=== PATIENT | female | born 1985 | race Caucasian/White ===

== ENCOUNTER → 2016-11-13 | Outpatient (CLI) | payer OTHER ==
[2016-11-13 17:23] LABS: BASO % 0.5 %; BASO ABS # 0.04 K/uL (0-0.2); COMPLETE YES; EOS % 0.4 %; HEMATOCRIT 39.1 % (37-47); IG% 0.8 %; LYMPH % 33.7 %; LYMPH ABS # 2.49 K/uL (1.2-3.4); MEAN CELL VOLUME 96.8 fL (80-100); MEAN CORPUSCULAR HEMOGLOBIN 31.7 pg (25-34); MEAN CORPUSCULAR HGB CONC 32.7 g/dl (32-36); MEAN PLATELET VOLUME 10.6 fL (7.4-10.4); MONO % 5.1 %; NEUT % 59.5 %; PLATELET COUNT 288 K/uL (130-400); RED BLOOD COUNT 4.04 M/uL (4.2-5.4); WHITE BLOOD COUNT 7.38 K/uL (4.8-10.8)
[2016-11-13 17:38] LABS: ALT/SGPT 29 U/L (12-78); BLOOD UREA NITROGEN 9 mg/dl (7-18); BUN/CREATININE RATIO 9.3 (10-20); CALCIUM 9.4 mg/dl (8.5-10.1); CARBON DIOXIDE 30 mmol/L (21-32); CHLORIDE 104 mmol/L (98-107); CHOLESTEROL 167 mg/dl (0-200); CREATININE 0.95 mg/dl (0.60-1.20); GLUCOSE 88 mg/dl (70-99); POTASSIUM 3.8 mmol/L (3.5-5.1); SODIUM 139 mmol/L (136-145)
[2016-11-13 17:46] LABS: ALB/GLOB RATIO 0.8 (0.9-2); ALKALINE PHOSPHATASE 71 U/L (45-117); AST/SGOT 20 U/L (15-37); CHOLESTEROL/HDL RATIO 3.7; HDL CHOLESTEROL 45 mg/dl; LDL CHOLESTEROL CALCULATED 89 mg/dl; TRIGLYCERIDES 166 mg/dl (0-150); VERY LOW DENSITY LIPOPROT CALC 33 mg/dl
--- NOTE | 2016-12-06 09:51 | CODING QUERY MEDICAL NECESSITY ---
SUPPORTING DIAGNOSIS NEEDED Suhas LEMONS, A supporting diagnosis is required for the test/procedure performed on this patient in order for us to be reimbursed by the patient's insurance. Please provide a supporting diagnosis for the following test/procedure listed below next to the test name along with your signature. *If there is no additional diagnosis for this patient that would support the following test/procedure please document that below next to the test/procedure. Test(s)/Procedure(s) that require a supporting diagnosis: * ([id number]) VITAMIN D ASSAY DIAGNOSIS: DATE OF SERVICE: 11/13/16 Provider Signature: Date: Thank you Lenny Arizmendi [facility] Information Management Once completed, please kindly fax back to [phone] For questions please call [phone]
== END | disposition home or self-care (01) ==
LOC: C.LABBFT 12:48
PROVIDERS: ATTEND Physician Assistant Medical
DX: R63.5 Abnormal weight gain (principal); E55.9 Vitamin D deficiency, unspecified

== ENCOUNTER 2018-10-15 13:30 | Inpatient (IN) ==
[2018-10-15] MEDS ORDERED: SODIUM CHLORIDE 0.9% 1000ML 1,000 ML IV ONE (13:57)
[2018-10-15] MEDS ORDERED: ALBUT/IPRATROP 3MG/0.5MG NEB 3 ML VIAL NEB STA (13:57)
--- NOTE | 2018-10-15 14:14 | XRay Report ---
SINGLE VIEW CHEST CLINICAL HISTORY: Sepsis. FINDINGS: An AP, portable, upright chest radiograph is obtained. No prior studies are available for c omparison at the time of dictation. The examination is degraded by portable technique and patient rot ation. The cardiomediastinal silhouette is unremarkable. Findings suggest pulmonary vascular congest ion. No airspace consolidation or large pleural effusion is identified. No pneumothorax is seen. The bony thorax is grossly intact. IMPRESSION: 1. Suspect pulmonary vascular congestion. 2. No airspace consolidation or large pleural effusion is identified. Electronically signed by: Caesar Melendez M.D. 10/15/2018 2:12 PM
[2018-10-15 14:36] LABS: Basophils # (auto) 0.06 K/uL (0-0.2); Basophils % (auto) 0.4 %; Eosinophils # (auto) 0.11 K/uL (0-0.5); Eosinophils % (auto) 0.8 %; Hematocrit (blood only) 38.3 % (37-47); Hemoglobin 13.2 g/dL (12.0-16.0); Immature Granulocytes # (auto) 0.04 K/uL (0.00-0.02); Immature Granulocytes % (auto) 0.3 %; Lymphocytes # (auto) 2.66 K/uL (1.2-3.4); Lymphocytes % (auto) 19.1 %; Mean Corpuscular Hgb Conc 34.5 g/dL (32-36); Mean Corpuscular Volume 95.5 fL (80-100); Mean Platelet Volume 9.9 fL (7.4-10.4); Monocytes # (auto) 0.53 K/uL (0.11-0.59); Monocytes % (auto) 3.8 %; Neutrophils # (auto) 10.54 K/uL (1.4-6.5); Neutrophils % (auto) 75.6 %; Platelet Count 281 K/uL (130-400); RDW Coefficient of Variation 14.4 % (11.5-14.5); RDW Standard Deviation 49.9 fL (36.4-46.3); Red Blood Count 4.01 M/uL (4.2-5.4); White Blood Count 13.94 K/uL (4.8-10.8)
--- NOTE | 2018-10-15 14:50 | Emergency Department Note ---
ED Visit Note I assisted in the care of this patient with Dr. Lloyd. Please see his note for further details. . Resident Activity Tracking Resident Involvement: Resident Care Provided Care Provided: Adult ED
[2018-10-15 14:52] LABS: Alanine Aminotransferase 35 U/L (12-78); Albumin Level 3.7 gm/dl (3.4-5.0); Aspartate Aminotransferase 17 U/L (15-37); BUN Creatinine Ratio 7.5 (10-20); Blood Urea Nitrogen 9 mg/dl (7-18); Calcium 9.2 mg/dl (8.5-10.1); Carbon Dioxide 28 mmol/L (21-32); Chloride 104 mmol/L (98-107); Creatinine Clr Calc Pharmacy 84.4 ml/min; Est GFR (African American) 74.2; Glucose 104 mg/dl (70-99); Potassium 3.7 mmol/L (3.5-5.1); Sodium 139 mmol/L (136-145)
--- NOTE | 2018-10-15 14:54 | Emergency Department Note ---
Entered by Sherry Sauceda acting as a scribe for Logan Lloyd MD History of Present Illness General Chief complaint: Illness Time Seen by Provider: 10/15/18 13:36 Source: other (Caregiver ) History of Present Illness Provider complaint: Illness Onset (ago): week(s) 1 Location: chest (cough, chest pain ) Pain Consistency: + other (worsening ) Quality: + constant Associated symptoms: + chest pain, + cough, + shortness of breath and + other (Positive: more sleepy. Negative: pain or swelling in legs, diarrhea ); no nausea/vomiting (vomiting ) The patient is a 33 year old female who presents to the ED with complaints of worsening cough that started a week ago. The caregiver reports she has history of down syndrome and goes to [employer]. The staff at the daycare was concerned since she was becoming worse. She has shortness of breath with her cough. The patient has chest pain and dry heaving. She did not have any recent travel. Per nursing staff, the patients father found an empty bottle of cough medicine. The caregiver states the patient has been acting differently in which she sleeps a lot more. The patient is on 3 liters of oxygen. The patient denies diarrhea, vomiting, pain or swelling in legs. Home Medications Home Medications Medication Instructions Recorded Confirmed Type No Known Home Medications 10/15/18 10/15/18 History Allergies Allergy/AdvReac Type Severity Reaction Status Date / Time No Known Allergies Allergy Unverified 10/15/18 14:02 Past Med/Surg History Medical History Bronchospasm, acute (Acute) Acute respiratory failure with hypoxia (Acute) Bronchopneumonia (Acute) Down syndrome (Chronic) Right elbow pain (Acute) Family History Other No known problems Social History Feels Safe at Home: Yes Smoking Status: Never smoker Review of Systems See HPI for pertinent positives & negatives. and A total of 10 systems reviewed and were otherwise negative Physical Exam Vital Signs Vital Signs - 24 hr 10/15/18 13:40 10/15/18 13:57 10/15/18 14:13 Temperature 37.1 C Temperature Source Oral Sepsis Recent Fever Within 48 Hours No Sepsis Action Taken by Nursing No Action Required Pulse Rate 79 Pulse Rate [Apical] 108 H 75 Pulse Rhythm [Apical] Respiratory Rate 22 23 22 Respiratory Effort / Characteristics Spontaneous Respiratory Depth Normal Blood Pressure 143/92 H Blood Pressure [Right Arm] Blood Pressure Mean 109 Blood Pressure Mean [Right Arm] Pulse Oximetry 88 L 92 94 Oxygen Delivery Method Room Air Nasal Cannula Nasal Cannula Oxygen Flow Rate 4 4 10/15/18 16:05 Temperature Temperature Source Sepsis Recent Fever Within 48 Hours Sepsis Action Taken by Nursing Pulse Rate Pulse Rate [Apical] 93 H Pulse Rhythm [Apical] Regular Respiratory Rate 22 Respiratory Effort / Characteristics Non-Labored Respiratory Depth Normal Blood Pressure Blood Pressure [Right Arm] 156/81 H Blood Pressure Mean Blood Pressure Mean [Right Arm] 106 Pulse Oximetry 95 Oxygen Delivery Method Nasal Cannula Oxygen Flow Rate 4 General: Mildly-ill appearing young female on supplemental oxygen. HEENT: Normal cephalic atraumatic. Pupils are equal round and reactive to light. Extraocular movements are intact. Oropharynx is pink with moist mucous membranes. No swelling of the mouth lips or tongue. Neck: Supple with a midline trachea. No meningeal signs or stiffness, no JVD or bruits. No Stridor. Chest: Somewhat coarsed to auscultation bilaterally. No wheezes or rhonchi. No increased work of breathing. Heart: regular rate and rhythm. Abdomen: Soft nontender, nondistended without rebound guarding or rigidity. Extremities: No cyanosis clubbing or edema. No calf tenderness or asymmetry Spine/Back. Non tender to palpation. No CVA tenderness Skin: Good turgor without rashes. Neurologic exam: Cranial nerves two through 12 are intact. Motor and sensation are intact and symmetrical throughout. Course 1358: The patient was evaluated in room B4B. A complete history and physical exam was performed. 1538: I checked on the patient. The patient looks better and I spoke with the father. 1605: The resident reviewed the sabina's case with Dr. Lester, [facility] Hospitalist. Administered Medications Miscellaneous Information (Consult) 1 ea N/A UD PRN PRN Reason: Consult Stop: 11/14/18 15:50 Last Admin: 10/15/18 16:05 Dose: 1 ea Documented by: [id number] Discontinued Medications Albuterol (Duoneb) 3 ml NEB NOW STA Stop: 10/15/18 13:58 Last Admin: 10/15/18 14:10 Dose: 3 ml Documented by: [id number] Sodium Chloride (Nss 1000ml) 1,000 mls @ 999 mls/hr IV .Q1H1M ONE Stop: 10/15/18 14:57 Last Infusion: 10/15/18 15:34 Dose: 0 mls/hr Documented by: [id number] Admin: 10/15/18 14:33 Dose: 999 mls/hr Documented by: [id number] Piperacillin Sod/Tazobactam Sod (Zosyn) 3.375 gm in 115 mls @ 230 mls/hr IV NOW STA Stop: 10/15/18 16:20 Last Infusion: 10/15/18 16:41 Dose: 0 mls/hr Documented by: [id number] Admin: 10/15/18 16:05 Dose: 230 mls/hr Documented by: [id number] Medical Decision Making Differential Diagnosis Differential Diagnosis: Pneumonia, sepsis, overdose, bronchitis, electrolyte and metabolic abnormalities. Medical Records Attestation: I reviewed the patient's medical records. Home Medications Current Medication List: was personally reviewed by me Laboratory Data Attestation: I reviewed the patient's lab results. Result diagrams: 10/15/18 14:25 10/15/18 14:25 Lab Results 10/15/18 10/15/18 10/15/18 Range/Units 14:25 14:25 14:25 WBC 13.94 H (4.8-10.8) K/uL RBC 4.01 L (4.2-5.4) M/uL Hgb 13.2 (12.0-16.0) g/dL Hct 38.3 (37-47) % MCV 95.5 (80-100) fL MCH 32.9 (25-34) pg MCHC 34.5 (32-36) g/dL RDW Std Deviation 49.9 H (36.4-46.3) fL RDW Coeff of Jane 14.4 (11.5-14.5) % Plt Count 281 (130-400) K/uL MPV 9.9 (7.4-10.4) fL Immature Gran % (Auto) 0.3 % Neut % (Auto) 75.6 % Lymph % (Auto) 19.1 % Baldwin % (Auto) 3.8 % Eos % (Auto) 0.8 % Baso % (Auto) 0.4 % Immature Gran # (Auto) 0.04 H (0.00-0.02) K/uL Neut # (Auto) 10.54 H (1.4-6.5) K/uL Lymph # (Auto) 2.66 (1.2-3.4) K/uL Baldwin # (Auto) 0.53 (0.11-0.59) K/uL Eos # (Auto) 0.11 (0-0.5) K/uL Baso # (Auto) 0.06 (0-0.2) K/uL PT (9.0-12.0) Seconds INR (0.9-1.1) APTT (21.0-31.0) Seconds PTT Ratio Sodium Cancelled Potassium Cancelled Chloride Cancelled Carbon Dioxide Cancelled Anion Gap Cancelled BUN Cancelled Creatinine Cancelled Est Cr Clr Drug Dosing Cancelled Est GFR ( Amer) Cancelled Est GFR (Non-Af Amer) Cancelled BUN/Creatinine Ratio Cancelled Glucose Cancelled Lactate 1.7 (0.4-2.0) mmol/L Calcium Cancelled Total Bilirubin Cancelled AST Cancelled ALT Cancelled Alkaline Phosphatase Cancelled Troponin I (0-0.045) ng/ml NT-Pro-B Natriuret Pep (0-450) pg/ml Total Protein Cancelled Albumin Cancelled Globulin Cancelled Albumin/Globulin Ratio Cancelled Procalcitonin (0-0.5) ng/ml Urine Color Urine Appearance (Clear) Urine pH (4.5-7.5) Ur Specific [place] (1.000-1.030) Urine Protein (Negative) Urine Glucose (UA) (Negative) Urine Ketones (Negative) Urine Blood (Negative) Urine Nitrite (Negative) Urine Bilirubin (Negative) Urine Urobilinogen (Negative) Ur Leukocyte Esterase (Negative) Urine WBC (Auto) (0-5) /hpf Urine RBC (Auto) (0-4) /hpf U Hyaline Cast (Auto) (0-5) /lpf U Epithel Cells (Auto) (0-5) /lpf Urine Bacteria (Auto) (Negative) Salicylates (2.8-20) mg/dl Acetaminophen (10-30) ug/ml 10/15/18 10/15/18 10/15/18 Range/Units 14:25 14:25 14:25 WBC (4.8-10.8) K/uL RBC (4.2-5.4) M/uL Hgb (12.0-16.0) g/dL Hct (37-47) % MCV (80-100) fL MCH (25-34) pg MCHC (32-36) g/dL RDW Std Deviation (36.4-46.3) fL RDW Coeff of Jane (11.5-14.5) % Plt Count (130-400) K/uL MPV (7.4-10.4) fL Immature Gran % (Auto) % Neut % (Auto) % Lymph % (Auto) % Baldwin % (Auto) % Eos % (Auto) % Baso % (Auto) % Immature Gran # (Auto) (0.00-0.02) K/uL Neut # (Auto) (1.4-6.5) K/uL Lymph # (Auto) (1.2-3.4) K/uL Baldwin # (Auto) (0.11-0.59) K/uL Eos # (Auto) (0-0.5) K/uL Baso # (Auto) (0-0.2) K/uL PT (9.0-12.0) Seconds INR (0.9-1.1) APTT (21.0-31.0) Seconds PTT Ratio Sodium 139 Potassium 3.7 Chloride 104 Carbon Dioxide 28 Anion Gap 7.0 BUN 9 Creatinine 1.14 Est Cr Clr Drug Dosing 84.4 Est GFR ( Amer) 74.2 Est GFR (Non-Af Amer) 64.0 BUN/Creatinine Ratio 7.5 L Glucose 104 H Lactate (0.4-2.0) mmol/L Calcium 9.2 Total Bilirubin 0.3 AST 17 ALT 35 Alkaline Phosphatase 87 Troponin I < 0.015 (0-0.045) ng/ml NT-Pro-B Natriuret Pep (0-450) pg/ml Total Protein 8.6 H Albumin 3.7 Globulin 4.9 H Albumin/Globulin Ratio 0.8 L Procalcitonin 0.05 (0-0.5) ng/ml Urine Color Urine Appearance (Clear) Urine pH (4.5-7.5) Ur Specific [place] (1.000-1.030) Urine Protein (Negative) Urine Glucose (UA) (Negative) Urine Ketones (Negative) Urine Blood (Negative) Urine Nitrite (Negative) Urine Bilirubin (Negative) Urine Urobilinogen (Negative) Ur Leukocyte Esterase (Negative) Urine WBC (Auto) (0-5) /hpf Urine RBC (Auto) (0-4) /hpf U Hyaline Cast (Auto) (0-5) /lpf U Epithel Cells (Auto) (0-5) /lpf Urine Bacteria (Auto) (Negative) Salicylates < 1.7 L (2.8-20) mg/dl Acetaminophen < 2 L (10-30) ug/ml 10/15/18 10/15/18 10/15/18 Range/Units 14:25 15:02 15:02 WBC (4.8-10.8) K/uL RBC (4.2-5.4) M/uL Hgb (12.0-16.0) g/dL Hct (37-47) % MCV (80-100) fL MCH (25-34) pg MCHC (32-36) g/dL RDW Std Deviation (36.4-46.3) fL RDW Coeff of Jane (11.5-14.5) % Plt Count (130-400) K/uL MPV (7.4-10.4) fL Immature Gran % (Auto) % Neut % (Auto) % Lymph % (Auto) % Baldwin % (Auto) % Eos % (Auto) % Baso % (Auto) % Immature Gran # (Auto) (0.00-0.02) K/uL Neut # (Auto) (1.4-6.5) K/uL Lymph # (Auto) (1.2-3.4) K/uL Baldwin # (Auto) (0.11-0.59) K/uL Eos # (Auto) (0-0.5) K/uL Baso # (Auto) (0-0.2) K/uL PT 10.1 (9.0-12.0) Seconds INR 1.0 (0.9-1.1) APTT 27.8 (21.0-31.0) Seconds PTT Ratio 1.0 Sodium Potassium Chloride Carbon Dioxide Anion Gap BUN Creatinine Est Cr Clr Drug Dosing Est GFR ( Amer) Est GFR (Non-Af Amer) BUN/Creatinine Ratio Glucose Lactate (0.4-2.0) mmol/L Calcium Total Bilirubin AST ALT Alkaline Phosphatase Troponin I (0-0.045) ng/ml NT-Pro-B Natriuret Pep 14 (0-450) pg/ml Total Protein Albumin Globulin Albumin/Globulin Ratio Procalcitonin (0-0.5) ng/ml Urine Color Yellow Urine Appearance Cloudy A (Clear) Urine pH 5.5 (4.5-7.5) Ur Specific [place] 1.011 (1.000-1.030) Urine Protein Negative (Negative) Urine Glucose (UA) Negative (Negative) Urine Ketones Negative (Negative) Urine Blood Negative (Negative) Urine Nitrite Negative (Negative) Urine Bilirubin Negative (Negative) Urine Urobilinogen Negative (Negative) Ur Leukocyte Esterase Negative (Negative) Urine WBC (Auto) 0 (0-5) /hpf Urine RBC (Auto) 0-4 (0-4) /hpf U Hyaline Cast (Auto) 0 (0-5) /lpf U Epithel Cells (Auto) 5-10 H (0-5) /lpf Urine Bacteria (Auto) Negative (Negative) Salicylates (2.8-20) mg/dl Acetaminophen (10-30) ug/ml Imaging Data Radiologist's Impression: Radiology results as stated below per my review and the radiologist's interpretation: SINGLE VIEW CHEST CLINICAL HISTORY: Sepsis. FINDINGS: An AP, portable, upright chest radiograph is obtained. No prior studies are available for comparison at the time of dictation. The examination is degraded by portable technique and patient rotation. The cardiomediastinal silhouette is unremarkable. Findings suggest pulmonary vascular congestion. No airspace consolidation or large pleural effusion is identified. No pneumothorax is seen. The bony thorax is grossly intact. IMPRESSION: 1. Suspect pulmonary vascular congestion. 2. No airspace consolidation or large pleural effusion is identified. Electronically signed by: Caesar Melendez M.D. 10/15/2018 2:12 PM ECG Data Attestation: I personally reviewed and interpreted this ECG as follows: Indication: chest pain and SOB/dyspnea Rate (beats per minute): 85 Rhythm: normal sinus Findings: no acute ischemic change and no ectopy Comparison ECG Date: no prior available Blood Pressure Blood Pressure Disposition: further management by hospitalist LILIAM Narrative This patient comes in as described above. She was placed in room before she had a cough for several days. She was found to be hypoxemic. She has been more lethargic than normal not drinking as much. She may have taken an extra dose of cough medicine last night. IV access established she was hydrated with normal saline and multiple blood testing was obtained including blood cultures. her white count is elevated. Chest x-ray shows some possible increased interstitial markings no focal infiltrate is seen. Clinically, I think she probably does have pneumonia or may be a more severe bronchitis. Given her hypoxemia, I do think she needs to be admitted. She was given IV antibiotics. She seems to doing much better with the fluids antibiotics and breathing treatments. Her toxicologic work-up is unremarkable thus far as well. I did talk to her father. We are going to admit her for further treatment and evaluation. Impression & Plan Pneumonia, Hypoxemia, Bronchitis, Shortness of breath, Down syndrome Discharge Plan Visit Data Chief Complaint: Illness ED Provider: Logan Lloyd ED Midlevel Provider: Lex Mcneil Discharge Problem: Pneumonia, Hypoxemia, Bronchitis, Shortness of breath, Down syndrome Patient Disposition: Being Evaluated by Hospitalist Discharge Instructions Interventions: ED Discharge Assessment Last Done: 10/15/18 18:48 The scribe's documentation has been prepared under my direction and personally reviewed by me in its entirety. I confirm that the note above accurately reflects all work, treatment, procedures, and medical decision making performed by me.
[2018-10-15 14:57] LABS: Albumin Globulin Ratio 0.8 (0.9-2); Alkaline Phosphatase 87 U/L (45-117); Bilirubin,Total 0.3 mg/dl (0.2-1); Globulin 4.9 gm/dl (2.5-4.0); Total Protein 8.6 gm/dl (6.4-8.2); Troponin I < 0.015 ng/ml (0-0.045)
[2018-10-15 15:06] LABS: Acetaminophen < 2 ug/ml (10-30); Salicylate < 1.7 mg/dl (2.8-20)
[2018-10-15 15:14] LABS: Appearance Urine Cloudy (Clear); Bacteria Urine Automated Negative (Negative); Bilirubin Urine Negative (Negative); Blood Urine Negative (Negative); Cast Urine Automated 0 /lpf (0-5); Color Urine Yellow; Glucose Urine UA Negative (Negative); Ketones Urine Negative (Negative); Leukocyte Esterase Urine Negative (Negative); Nitrite Urine Negative (Negative); Protein Urine Negative (Negative); RBC Urine Automated 0-4 /hpf (0-4); Specific Gravity Urine 1.011 (1.000-1.030); Urobilinogen Urine Negative (Negative); WBC Urine Automated 0 /hpf (0-5); pH Urine 5.5 (4.5-7.5)
[2018-10-15 15:22] LABS: Partial Thromboplastin Time 27.8 Seconds (21.0-31.0); Prothrombin Time 10.1 Seconds (9.0-12.0)
[2018-10-15] MEDS ORDERED: PIPERACILL/TAZOBAC CONSULT ACTIVE PRN (15:51)
[2018-10-15] MEDS ORDERED: PIPERACILLIN/TAZOBACTAM 3.375 GM/115 ML BAG IV STA (15:51)
--- NOTE | 2018-10-15 16:18 | History & Physical Report ---
Date of Service October 15, 2018 Assessment & Plan (1) Bronchopneumonia: The patient is unable to produce any sputum for culture. Treat with intravenous Rocephin and azithromycin. Chest CT scan to evaluate for infiltrates Present on Admission?: Yes (2) Acute respiratory failure with hypoxia: Supplemental oxygen to maintain saturation greater than 90%. Wean off as tolerated Present on Admission?: Yes (3) Bronchospasm, acute: Intravenous steroids. Scheduled nebulizer treatments. Treat bronchopneumonia Present on Admission?: Yes (4) Down syndrome: Provide supportive care Present on Admission?: Yes (5) DVT prophylaxis: Lovenox subcu History of Present Illness Chief Complaint: Nonproductive cough, shortness of breath Primary Care Provider: Steve Nicholson MD 33-year-old female with Down syndrome with a one-week history of nonproductive cough, shortness of breath, wheezing. Her symptoms progressed and she was brought to the ED today by EMS. Oxygen saturation 84% on room air. Chest x-ray is negative but clinically she has bronchopneumonia. Chest CT scan pending to document presence or absence of pneumonia. She is now on 4 L of oxygen and appears to be resting comfortably. Her box order person denies any problems with dysphagia or aspiration episodes. BNP is normal. Lactic acid normal. Creatinine normal. White count 13,900. She is unable to produce any sputum for culture. She will be treated with intravenous Rocephin and a azithromycin along with Solu-Medrol and nebulizers. Allergies Allergy/AdvReac Type Severity Reaction Status Date / Time No Known Allergies Allergy Unverified 10/15/18 14:02 Home Medications Home Medications Medication Instructions Recorded Confirmed Type No Known Home Medications 10/15/18 10/15/18 History Past Med/Surg History Medical History Bronchospasm, acute (Acute) Acute respiratory failure with hypoxia (Acute) Bronchopneumonia (Acute) Down syndrome (Chronic) Right elbow pain (Acute) Family History Other No known problems Social History Feels Safe at Home: Yes Smoking Status: Never smoker Review of Systems Review of Systems: Constitutional-no fever or chills ENT-no blurred vision, no double vision, no epistaxis, no sore throat Respiratory-nonproductive cough, shortness of breath, wheezing Cardiac-no palpitations, no chest pain, no syncope GI-no nausea, vomiting, diarrhea, melena, hematochezia -no urinary retention, no urinary incontinence, no dysuria, no hematuria Musculoskeletal-no joint pain, no muscle tenderness Skin-no bruising, no rashes, no pruritus Neuro-no isolated weakness, no paresthesia, no weakness Psych-no depression, no anxiety Physical Exam Physical Exam: General-alert and oriented x3, no fevers, no chills HEENT-head atraumatic and normocephalic, TMs intact bilaterally, pupils equal and reactive to light, extraocular muscles intact Neck-no lymphadenopathy or thyromegaly, trachea midline Chest-midline rhonchi. Bilateral expiratory wheezes. No inspiratory rales. No dullness to percussion Cardiac-regular rate and rhythm, normal S1 and S2, no murmurs Abdomen-normal bowel sounds, nontender, no hepatosplenomegaly Extremities-no cyanosis, clubbing, or edema Neuro-cranial nerves II through XII intact, strength symmetrical , no focal deficits. Down syndrome Psych-normal affect, normal mood Results & Data Vital Signs (Past 12 Hours) Vital Signs Temp Pulse Pulse Resp BP BP Pulse Ox 10/15/18 16:05 93 H 22 156/81 H 95 10/15/18 14:13 75 22 94 10/15/18 13:57 108 H 23 92 10/15/18 13:40 37.1 C 79 22 143/92 H 88 L Laboratory Results 10/15/18 14:25 10/15/18 14:25 PG Care Time/CCT Total # of Minutes Spent Total Time Spent with Patient: Total time spent is greater than 50% in coordination of care (as documented) at patient's floor/unit and/or counseling patient:
--- NOTE | 2018-10-15 17:23 | CT Scan Report ---
CT chest wo con CLINICAL HISTORY: Hypoxia, suspected pneumonia, negative chest x-ray COMPARISON STUDY: Chest x-ray dated 10/15/2018 CT DOSE: 667.29 mGy.cm TECHNIQUE: CT of the thorax was performed from the thoracic inlet to the lung bases. Images are revi ewed in the axial, sagittal, and coronal planes. IV contrast was not administered for this examinatio n. A dose lowering technique was utilized adhering to the principles of ALARA. FINDINGS: Thyroid: There is mild enlargement of the left lobe of the thyroid. Underlying nodularity cannot be e xcluded Thoracic aorta: The thoracic aorta is normal in course and caliber, noting standard 3 vessel arch elizabet cassius. Heart: The heart is normal in size and configuration, without pericardial effusion. Lungs and pleural spaces: The study is severely compromised due to respiratory motion artifact. There are left lower lobe airspace opacity suspicious for pneumonia. Imaging subsequent to treatment is re commended in follow-up. There is equivocal trace left pleural fluid Mediastinum: There is no mediastinal lymphadenopathy. Karen: There is no evidence of hilar adenopathy given the limitations of a noncontrast study Axilla: There is no evidence of pathologic axillary lymphadenopathy Upper abdomen: There is hepatic steatosis. Skeletal structures: There are no lytic or blastic osseous lesions. IMPRESSION: 1. Examination compromised secondary to respiratory motion artifact 2. Left lower lobe airspace opacities consistent with pneumonia. Imaging subsequent to treatment is r ecommended in follow-up Electronically signed by: Brent Bianchi M.D. 10/15/2018 5:22 PM
[2018-10-15] MEDS ORDERED: cefTRIAXone SODIUM 1,000 MG in DEXTROSE 5% 50 ML IV SCH (19:52)
[2018-10-15] MEDS ORDERED: ALUMINUM/MAGNESIUM SUSP 30 ML UDC PO PRN (19:52)
[2018-10-15] MEDS: ALBUT/IPRATROP 3MG/0.5MG NEB 3 ML VIAL NEB SCH (21:08)
[2018-10-15] MEDS: methylPREDNISolone 40 MG in SYRINGE 0 ML IV SCH (21:37)
[2018-10-15] MEDS: ENOXAPARIN INJ 40 MG/0.4 ML SYR SQ SCH (21:39)
[2018-10-15] MEDS: cefTRIAXone SODIUM 2,000 MG in DEXTROSE 5% 50 ML IV SCH (21:39)
[2018-10-15] MEDS: AZITHROMYCIN 500 MG in DEXTROSE 5% 250 ML IV SCH (22:47)
[2018-10-16] MEDS: methylPREDNISolone 40 MG in SYRINGE 0 ML IV SCH ×3 (04:59→21:01)
[2018-10-16] MEDS: ALBUT/IPRATROP 3MG/0.5MG NEB 3 ML VIAL NEB SCH ×4 (07:11→19:49)
--- NOTE | 2018-10-16 07:31 | Hospitalist Progress Note ---
Date of Service October 16, 2018 Assessment & Plan (1) Bronchopneumonia: The patient is unable to produce any sputum for culture. Treat with intravenous Rocephin and azithromycin. Chest CT scan to evaluate for infiltrates (2) Acute respiratory failure with hypoxia: Supplemental oxygen to maintain saturation greater than 90%. Wean off as tolerated degree of hypoxia seems to be more significant than infiltrates seen on CT scan likewise her asthma exacerbation is not such that she seems a significant air trapping. We will perform an echocardiogram to look for atrial ventricular septal defects for mixing to explain her hypoxia (3) Bronchospasm, acute: Intravenous steroids. Scheduled nebulizer treatments. Treat bronchopneumonia (4) Down syndrome: Provide supportive care (5) DVT prophylaxis: Lovenox subcu Subjective Patient has very little interaction with me she appears to be in only mild distress she is wearing an oxygen mask family is present at the bedside. She has some rhonchi in bilateral lungs and she appears to be in mild to moderate distress Review of Systems Review of Systems: Unobtainable due to cognitive status Physical Exam Physical Exam: The patient appeared well nourished and has typical developmental features of Down syndrome Vital signs as documented. Head exam is unremarkable. normocephalic, atraumatic Neck is without jugular venous distension but difficult to evaluate Lungs are clear with rhonchi bibasilarly equal bilaterally Cardiac exam reveals Rhythm is regular lab murmurs are not heard Abdominal exam reveals normal bowel sounds, no masses, no organomegaly Extremities are nonedematous and both pedal pulses are present Neurologic exam is Alert and follows commands Psychologically seems anxious Skin is warm Dry Results & Data Vital Signs (Past 12 Hours) Vital Signs Temp Pulse Resp BP Pulse Ox 10/16/18 07:11 82 20 88 L 10/16/18 04:33 37 C 71 16 148/88 H 97 10/16/18 00:00 37.1 C 92 H 20 155/91 H 92 10/15/18 21:00 37.1 C 98 H 22 152/89 H 90 10/15/18 20:19 37.1 C 98 H 22 152/89 H 90 PG Care Time/CCT Total # of Minutes Spent Total Time Spent with Patient: Total time spent is greater than 50% in coordination of care (as documented) at patient's floor/unit and/or counseling patient:
[2018-10-16] MEDS ORDERED: PERFLUTREN LIPID MICROSPHERE (DEFINITY) IV ONE (15:17)
[2018-10-16] MEDS: cefTRIAXone SODIUM 2,000 MG in DEXTROSE 5% 50 ML IV SCH (20:58)
[2018-10-16] MEDS: ENOXAPARIN INJ 40 MG/0.4 ML SYR SQ SCH (20:59)
[2018-10-16] MEDS: AZITHROMYCIN 500 MG in DEXTROSE 5% 250 ML IV SCH (21:48)
[2018-10-17] MEDS: methylPREDNISolone 40 MG in SYRINGE 0 ML IV SCH ×3 (05:12→22:38)
[2018-10-17] MEDS: ALBUT/IPRATROP 3MG/0.5MG NEB 3 ML VIAL NEB SCH ×4 (07:18→19:11)
--- NOTE | 2018-10-17 09:44 | XRay Report ---
XR chest 2V routine CLINICAL HISTORY: eval pneumonia dyspnea COMPARISON STUDY: 10/15/2018 FINDINGS: Mild cardiomegaly. Mild increased prominence of pulmonary vasculature. Possible early paren chymal infiltrate medial right base. IMPRESSION: 1. Mildly progressive component of congestive heart failure. 2. Potential developing small superimposed parenchymal infiltrate medial right base. The above report was generated using voice recognition software. It may contain grammatical, syntax or spelling errors. Electronically signed by: Rio Sotelo M.D. 10/17/2018 9:43 AM
--- NOTE | 2018-10-17 13:39 | Hospitalist Progress Note ---
Date of Service October 17, 2018 Assessment & Plan (1) Bronchopneumonia: The patient is unable to produce any sputum for culture. Continue intravenous Rocephin and azithromycin. Chest CT shows infiltrates present but not significantly large to explain hypoxia (2) Acute respiratory failure with hypoxia: Supplemental oxygen to maintain saturation greater than 90%. Wean off as tolerated degree of hypoxia seems to be more significant than infiltrates seen on CT scan likewise her asthma exacerbation is not such that she seems a significant air trapping. echocardiogram was relatively normal once again not explaining her significant hypoxemia (3) Bronchospasm, acute: Intravenous steroids. Scheduled nebulizer treatments. Treat bronchopneumonia and recheck for chest physiotherapy (4) Down syndrome: Provide supportive care feels better when her father is around (5) DVT prophylaxis: Lovenox subcu Subjective pt is still looking subjectively improved, she still is with high oxygen requirements, remains on steroids. Review of Systems Review of Systems: Patient has Down syndrome and is answers very few questions says she feels okay breathing is a little better but otherwise would not answer any additional questions she does not look to be in respiratory distress and her hypoxemia seems out of proportion to her physical subjective evaluation Physical Exam Physical Exam: The patient appeared well nourished and is exhibits appearance of Down syndrome patient. She is in mild to moderate distress Vital signs as documented. Head exam is unremarkable. normocephalic, atraumatic Neck is without jugular venous distension, thyromegaly, or lymphademopathy Lungs are coarse bilaterally without wheezes or prolonged expiratory phase Cardiac exam reveals Rhythm is regular. No murmurs are heard Abdominal exam reveals normal bowel sounds, no masses, no organomegaly Extremities are nonedematous and both pedal pulses are present Neurologic exam is A&Ox3, no focal deficits, strength is equal bilateral Psychologically seems anxious Skin is warm Dry Results & Data Vital Signs (Past 12 Hours) Vital Signs Temp Pulse Resp BP BP Pulse Ox 10/17/18 12:05 36.4 C L 88 16 125/76 92 10/17/18 11:14 77 18 93 10/17/18 07:41 36.9 C 74 18 145/79 H 91 10/17/18 07:19 68 18 94 10/17/18 04:00 36.6 C 82 20 127/64 95 PG Care Time/CCT Total # of Minutes Spent Total Time Spent with Patient: Total time spent is greater than 50% in coordination of care (as documented) at patient's floor/unit and/or counseling patient:
[2018-10-17] MEDS ORDERED: FUROSEMIDE 20 MG in SYRINGE 0 ML IV ONE (14:15)
[2018-10-17 14:51] LABS: Base Excess ABG 2.3 mEq/L (-9-1.8); HCO3 ABG 26 mmol/L (19-24); Oxygen Saturation ABG 94.6 % (90-95); PCO2 ABG 39 mmHg (35-46); PO2 ABG 70 mm/Hg (80-95); pH ABG 7.45 (7.35-7.45)
[2018-10-17 14:54] LABS: Allen Test Pos (Pos)
[2018-10-17] MEDS: cefTRIAXone SODIUM 2,000 MG in DEXTROSE 5% 50 ML IV SCH (20:22)
[2018-10-17] MEDS: AZITHROMYCIN 500 MG in DEXTROSE 5% 250 ML IV SCH (21:13)
[2018-10-17] MEDS: ENOXAPARIN INJ 40 MG/0.4 ML SYR SQ SCH (21:16)
[2018-10-18] MEDS: ALBUT/IPRATROP 3MG/0.5MG NEB 3 ML VIAL NEB SCH ×4 (07:33→19:48)
[2018-10-18 08:07] LABS: Basophils # (auto) 0.01 K/uL (0-0.2); Hematocrit (blood only) 38.1 % (37-47); Hemoglobin 12.7 g/dL (12.0-16.0); Immature Granulocytes # (auto) 0.26 K/uL (0.00-0.02); Immature Granulocytes % (auto) 1.2 %; Lymphocytes # (auto) 1.36 K/uL (1.2-3.4); Lymphocytes % (auto) 6.4 %; Mean Corpuscular Hgb Conc 33.3 g/dL (32-36); Mean Platelet Volume 10.2 fL (7.4-10.4); Monocytes % (auto) 1.9 %; Neutrophils % (auto) 90.5 %; Nucleated RBC # (auto) 0.02 K/uL (0-0); Nucleated RBC % (auto) 0.1 %; Platelet Count 317 K/uL (130-400); RDW Coefficient of Variation 15.1 % (11.5-14.5); Red Blood Count 3.85 M/uL (4.2-5.4); White Blood Count 21.33 K/uL (4.8-10.8)
[2018-10-18 08:36] LABS: BUN Creatinine Ratio 20.4 (10-20); Calcium 8.7 mg/dl (8.5-10.1); Est GFR (African American) 86.9; Potassium 4.1 mmol/L (3.5-5.1)
[2018-10-18] MEDS: methylPREDNISolone 40 MG in SYRINGE 0 ML IV SCH ×2 (10:14→21:49)
--- NOTE | 2018-10-18 12:49 | Hospitalist Progress Note ---
Date of Service October 18, 2018 Assessment & Plan (1) Bronchopneumonia: The patient is unable to produce any sputum for culture. Continue intravenous Rocephin and azithromycin. Chest CT shows infiltrates present but not significantly large to explain hypoxia White blood cell count was 21,000 certainly could be leftward shift from steroids. She is had no diarrhea to suspect C. difficile. We will add Stephany nasal lid to cover MRSA will reduce her steroids although we have not had any great improvement in her hypoxemia (2) Acute respiratory failure with hypoxia: Supplemental oxygen to maintain saturation greater than 90%. Wean off as tolerated degree of hypoxia seems to be more significant than infiltrates seen on CT scan Echocardiogram was relatively normal once again not explaining her significant hypoxemia \Hypoxia is present and significant seemingly out of proportion to her subjective presentation (3) Bronchospasm, acute: Intravenous steroids reduced dose on 10/18. continues with Scheduled nebulizer treatments. Treat bronchopneumonia and recheck for chest physiotherapy (4) Down syndrome: Provide supportive care feels better when her father is around (5) DVT prophylaxis: Lovenox subcu Subjective Patient is has very little interaction although she claims to have no distress even when I took the oxygen off and her sats went to the mid 80s she seemed to have no labored breathing or have any untoward side effects. Her white count did jump up quite a bit today which makes me concerned that the antibiotics are not helping, she was diuresed yesterday try to help her hypoxia which showed no improvement Review of Systems Review of Systems: Unobtainable due to cognitive status ROS: Patient is with little verbal interaction to have a reliable review of systems Physical Exam Physical Exam: The patient appeared well nourished and in a typical experience of Down syndrome Vital signs as documented. Head exam is unremarkable. normocephalic, atraumatic Neck is without jugular venous distension, thyromegaly, or lymphademopathy Lungs are coarse bilaterally with more coarse breath sounds at the left base and midway up in the right Cardiac exam reveals Rhythm is regular. No murmurs are heard Abdominal exam reveals normal bowel sounds, no masses, no organomegaly Extremities are nonedematous and both pedal pulses are present Neurologic exam is alert follows directions and with light conversation can interact however does not provide any depth or insight into her illness, no focal deficits, strength is equal bilateral Skin is warm Dry without bruises or lesions Results & Data Vital Signs (Past 12 Hours) Vital Signs Temp Pulse Pulse Pulse Resp BP BP 10/18/18 11:43 36.4 C L 78 18 139/85 10/18/18 11:26 88 16 10/18/18 07:46 36.7 C 71 18 111/58 L 10/18/18 07:33 87 18 10/18/18 04:00 36.8 C 69 20 108/74 10/18/18 01:03 93 H Pulse Ox 10/18/18 11:43 94 10/18/18 11:26 96 10/18/18 07:46 95 10/18/18 07:33 97 10/18/18 04:00 95 10/18/18 01:03 PG Care Time/CCT Total # of Minutes Spent Total Time Spent with Patient: Total time spent is greater than 50% in coordination of care (as documented) at patient's floor/unit and/or counseling patient:
[2018-10-18] MEDS ORDERED: LINEZOLID 600 MG/300 ML BAG IV SCH (13:00)
[2018-10-18] MEDS ORDERED: LINEZOLID 600 MG/300 ML D5W IV SCH (13:00)
--- NOTE | 2018-10-18 15:07 | Infectious Disease Consult ---
Date of Consultation October 18, 2018 Assessment & Plan (1) Pneumonia: 33-year-old female with Down syndrome with pneumonia with significant hypoxia, with subjective improvement but with persistent hypoxia and elevated white blood cell count. For now, would continue patient on current IV antib iotics. Repeat procalcitonin ordered. Will follow. History of Present Illness Reason for Consultation: Initiation of linezolid Attending Physician: Jonathan Henson MD History of Present Illness 33-year-old female with history of Down syndrome who was admitted with 1 week history of progressively worsening cough, shortness of breath, fever, chills, and weakness. Was brought to the hospital where CT scan of the chest revealed evidence of pneumonia, and patient has been treated with IV ceftriaxone and azithromycin, and has been afebrile and comfortable, but still with significant hypoxia. Blood cultures have been negative. Unable to produce sputum. Procalcitonin low. Echocardiogram unremarkable. White count has been elevated but patient has been receiving steroids. Allergies Allergy/AdvReac Type Severity Reaction Status Date / Time No Known Allergies Allergy Unverified 10/15/18 14:02 Home Medications Home Medications Medication Instructions Recorded Confirmed Type No Known Home Medications 10/15/18 10/15/18 History Patient History Medical History Bronchospasm, acute (Acute) Acute respiratory failure with hypoxia (Acute) Bronchopneumonia (Acute) Down syndrome (Chronic) Right elbow pain (Acute) Family History Other No known problems Social History Communication Ability: Impaired Beliefs That Will Affect Care: None Current Living Situation: Family Feels Safe at Home: Yes Safety Concerns: Feels Safe At This Time Smoking Status: Never smoker Hx Alcohol Use: No Hx Substance Use: No Review of Systems Review of Systems: Unobtainable due to cognitive status Physical Exam Constitutional: WD/WN, vitals as above comfortable; no acute distress Eyes: PERRL, conjunctivae normal, anicteric sclerae ENMT: external ear and nose normal, oropharynx normal Neck: trachea midline, no thyromegaly neck nontender Respiratory: normal percussion; no respiratory distress and does not use accessory muscles Auscultation: + rhonchi (Few left-sided) Cardiovascular: Rate/Rhythm: regular rate and regular rhythm Heart Sounds: normal S1 and normal S2; no gallop, no murmur and no cardiac rub Vessels: normal peripheral pulses; no JVD Gastrointestinal (Abdomen): normal bowel sounds, soft, nontender, no he patosplenomegaly Musculoskeletal: no cyanosis or clubbing, extremities motor strength 5/5 Spine: thoracic spine normal to inspection and lumbar spine normal to inspection; no cervical spinal tenderness Skin: no rashes, warm and dry normal turgor; no lesions Neurologic: moves all extremities; no focal motor deficits Psychiatric: Orientation: alert and cooperative Lymphatic: no cervical or axillary lymphadenopathy no inguinal lymphadenopathy Results & Data Vital Signs (Past 12 Hours) Vital Signs Temp Pulse Pulse Resp BP BP Pulse Ox 10/18/18 11:43 36.4 C L 78 18 139/85 94 10/18/18 11:26 88 16 96 10/18/18 07:46 36.7 C 71 18 111/58 L 95 10/18/18 07:33 87 18 97 10/18/18 04:00 36.8 C 69 20 108/74 95 Laboratory Results Short CBC 10/18/18 Range/Units 07:33 WBC 21.33 H (4.8-10.8) K/uL Hgb 12.7 (12.0-16.0) g/dL Hct 38.1 (37-47) % Plt Count 317 (130-400) K/uL BMP 10/18/18 07:33 Sodium 140 Potassium 4.1 Chloride 105 Carbon Dioxide 28 BUN 20 H Creatinine 1.00 Glucose 121 H Calcium 8.7 Diagnostic Findings Microbiology 10/15/18 14:25 Blood Aerobic Blood Culture - Preliminary No growth in Aerobic bottle after 48 hours. 10/15/18 14:25 Blood Anaerobic Blood Culture - Preliminary No growth in Anaerobic bottle after 48 hours. 10/15/18 14:34 Blood Aerobic Blood Culture - Preliminary No growth in Aerobic bottle after 48 hours. 10/15/18 14:34 Blood Anaerobic Blood Culture - Preliminary No growth in Anaerobic bottle after 48 hours. Ordering Phy: Jonathan Henson MD cc: ~ XR chest 2V routine CLINICAL HISTORY: eval pneumonia dyspnea COMPARISON STUDY: 10/15/2018 FINDINGS: Mild cardiomegaly. Mild increased prominence of pulmonary vasculature. Possible early parenchymal infiltrate medial right base. IMPRESSION: 1. Mildly progressive component of congestive heart failure. 2. Potential developing small superimposed parenchymal infiltrate medial right base. The above report was generated using voice recognition software. It may contain grammatical, syntax or spelling errors. (1) Pneumonia Laterality: unspecified laterality Lung location: unspecified part of lung Pneumonia type: due to unspecified organism Qualified Code(s): J18.9 - Pneumonia, unspecified organism
[2018-10-18] MEDS: ACETAMINOPHEN 325 MG TAB PO PRN (16:42)
[2018-10-18] MEDS: cefTRIAXone SODIUM 2,000 MG in DEXTROSE 5% 50 ML IV SCH (20:58)
[2018-10-18] MEDS: AZITHROMYCIN 500 MG in DEXTROSE 5% 250 ML IV SCH (21:51)
[2018-10-18] MEDS: ENOXAPARIN INJ 40 MG/0.4 ML SYR SQ SCH (21:54)
[2018-10-19] MEDS: LINEZOLID 600 MG/300 ML BAG IV SCH ×2 (02:06→13:53)
[2018-10-19] MEDS: ALBUT/IPRATROP 3MG/0.5MG NEB 3 ML VIAL NEB SCH ×4 (07:22→20:01)
[2018-10-19 07:53] LABS: Hematocrit (blood only) 38.3 % (37-47); Hemoglobin 12.6 g/dL (12.0-16.0); Mean Corpuscular Hgb Conc 32.9 g/dL (32-36); Mean Corpuscular Volume 97.5 fL (80-100); Mean Platelet Volume 10.3 fL (7.4-10.4); Platelet Count 334 K/uL (130-400); RDW Coefficient of Variation 14.7 % (11.5-14.5); Red Blood Count 3.93 M/uL (4.2-5.4); White Blood Count 16.81 K/uL (4.8-10.8)
[2018-10-19 08:30] LABS: BUN Creatinine Ratio 17.3 (10-20); Calcium 8.5 mg/dl (8.5-10.1); Creatinine Clr Calc Pharmacy 104.8 ml/min; Est GFR (African American) 100.1; Est GFR (Non-African American) 86.4; Potassium 4.2 mmol/L (3.5-5.1)
[2018-10-19] MEDS: methylPREDNISolone 40 MG in SYRINGE 0 ML IV SCH ×2 (10:37→21:54)
--- NOTE | 2018-10-19 16:42 | Hospitalist Progress Note ---
Date of Service October 19, 2018 Assessment & Plan (1) Bronchopneumonia: The patient is unable to produce any sputum for culture. Continue intravenous Zyvox, Rocephin and azithromycin. Chest CT shows infiltrates present but not significantly large to explain hypoxia White blood cell count was 21,000 certainly could be leftward shift from steroids. She is had no diarrhea to suspect C. difficile. After adding Zyvox to cover MRSA patient is seemingly clinically improved although no cultures to direct our care (2) Acute respiratory failure with hypoxia: Supplemental oxygen to maintain saturation greater than 90%. Wean off as tolerated degree of hypoxia seems to be more significant than infiltrates seen on CT scan Echocardiogram was relatively normal once again not explaining her significant hypoxemia \Hypoxia is present and significant seemingly out of proportion to her subjective presentation did slightly improve on 10/19 we will continue to hold the course (3) Bronchospasm, acute: Intravenous steroids reduced dose on 10/18. continues with Scheduled nebulizer treatments. Treat bronchopneumonia and reinforce chest physiotherapy (4) Down syndrome: Provide supportive care feels better when her father is around (5) DVT prophylaxis: Lovenox subcu Subjective Patient subjectively looks better feels better seemingly less oxygen father at the bedside and updated Review of Systems Review of Systems: Unobtainable due to cognitive status Physical Exam Physical Exam: The patient appeared well nourished and normally developed. Vital signs as documented. Head exam is unremarkable. normocephalic, atraumatic Neck is without jugular venous distension, thyromegaly, or lymphademopathy Lungs are coarse bilaterally but generally fairly clear Cardiac exam reveals Rhythm is regular. First and second heart sounds normal. Abdominal exam reveals normal bowel sounds, no masses, no organomegaly Extremities are nonedematous and both pedal pulses are present Neurologic exam is A&Ox3, no focal deficits, strength is equal bilateral Psychologically seems neither anxious or depressed Skin is warm Dry without bruises or lesions Results & Data Vital Signs (Past 12 Hours) Vital Signs Temp Pulse Pulse Resp BP Pulse Ox 10/19/18 15:20 92 H 16 95 10/19/18 15:19 36.3 C L 76 20 137/76 94 10/19/18 11:22 36.5 C 83 22 138/89 94 10/19/18 11:02 89 18 86 L 10/19/18 08:42 72 10/19/18 07:22 103 H 18 98 07/28/19 07:20 36.5 C 74 20 132/83 96 PG Care Time/CCT Total # of Minutes Spent Total Time Spent with Patient: Total time spent is greater than 50% in coordination of care (as documented) at patient's floor/unit and/or counseling patient:
--- NOTE | 2018-10-19 17:02 | Infectious Disease Progress Nt ---
Date of Service October 19, 2018 Assessment & Plan (1) Pneumonia: 33-year-old female with Down syndrome with pneumonia with significant hypoxia, with subjective improvement but with persistent hypoxia and elevated white blood cell count. For now, would continue patient on current IV antibiotics. Repeat procalcitonin remains normal. Will follow. Subjective Patient subjectively looks better feels better seemingly less oxygen father at the bedside and updated Review of Systems Review of Systems: Unobtainable due to cognitive status Physical Exam Constitutional: WD/WN, vitals as above comfortable; no acute distress Eyes: PERRL, conjunctivae normal, anicteric sclerae ENMT: external ear and nose normal, oropharynx normal Neck: trachea midline, no thyromegaly neck nontender Respiratory: normal percussion; no respiratory distress and does not use accessory muscles Auscultation: + rhonchi (Few left-sided) Cardiovascular: Rate/Rhythm: regular rate and regular rhythm Heart Sounds: normal S1 and normal S2; no gallop, no murmur and no cardiac rub Vessels: normal peripheral pulses; no JVD Gastrointestinal (Abdomen): normal bowel sounds, soft, nontender, no hepatosplenomegaly Musculoskeletal: no cyanosis or clubbing, extremities motor strength 5/5 Spine: thoracic spine normal to inspection and lumbar spine normal to inspection; no cervical spinal tenderness Skin: no rashes, warm and dry normal turgor; no lesions Neurologic: moves all extremities; no focal motor deficits Psychiatric: Orientation: alert and cooperative Lymphatic: no cervical or axillary lymphadenopathy no inguinal lymphadenopathy Results & Data Vital Signs (Past 12 Hours) Vital Signs Temp Pulse Pulse Resp BP Pulse Ox 10/19/18 15:20 92 H 16 95 10/19/18 15:19 36.3 C L 76 20 137/76 94 10/19/18 11:22 36.5 C 83 22 138/89 94 10/19/18 11:02 89 18 86 L 10/19/18 08:42 72 10/19/18 07:22 103 H 18 98 10/19/18 07:20 36.5 C 74 20 132/83 96 (1) Pneumonia Laterality: unspecified laterality Lung location: unspecified part of lung Pneumonia type: due to unspecified organism Qualified Code(s): J18.9 - Pneumonia, unspecified organism
[2018-10-19] MEDS: cefTRIAXone SODIUM 2,000 MG in DEXTROSE 5% 50 ML IV SCH (20:28)
[2018-10-19] MEDS: ENOXAPARIN INJ 40 MG/0.4 ML SYR SQ SCH (20:29)
[2018-10-19] MEDS: ACETAMINOPHEN 325 MG TAB PO PRN (21:01)
[2018-10-19] MEDS: AZITHROMYCIN 500 MG in DEXTROSE 5% 250 ML IV SCH (21:27)
[2018-10-20] MEDS: LINEZOLID 600 MG/300 ML BAG IV SCH ×2 (02:16→13:48)
[2018-10-20 07:03] LABS: Hematocrit (blood only) 39.8 % (37-47); Mean Corpuscular Hgb Conc 32.7 g/dL (32-36); Mean Corpuscular Volume 98.5 fL (80-100); Platelet Count 331 K/uL (130-400); RDW Coefficient of Variation 14.8 % (11.5-14.5); RDW Standard Deviation 52.8 fL (36.4-46.3); Red Blood Count 4.04 M/uL (4.2-5.4); White Blood Count 16.16 K/uL (4.8-10.8)
[2018-10-20] MEDS: ALBUT/IPRATROP 3MG/0.5MG NEB 3 ML VIAL NEB SCH ×4 (07:24→19:28)
[2018-10-20 07:40] LABS: BUN Creatinine Ratio 17.6 (10-20); Calcium 8.5 mg/dl (8.5-10.1); Creatinine Clr Calc Pharmacy 94.4 ml/min; Est GFR (Non-African American) 75.9; Potassium 4.3 mmol/L (3.5-5.1)
[2018-10-20] MEDS: guaiFENesin 600 MG TABCR PO SCH ×2 (08:19→21:24)
[2018-10-20] MEDS: BENZONATATE 100 MG CAPSULE PO SCH ×3 (08:19→21:25)
[2018-10-20] MEDS: predniSONE 20 MG TAB PO SCH (09:17)
--- NOTE | 2018-10-20 12:10 | Hospitalist Progress Note ---
Date of Service October 20, 2018 Assessment & Plan (1) Bronchopneumonia: Continue intravenous Zyvox and azithromycin. Chest CT shows infiltrates present but not significantly large to explain hypoxia White blood cell count has reduced After adding Zyvox to cover MRSA patient is seemingly clinically improved although no cultures to direct our care (2) Acute respiratory failure with hypoxia: Supplemental oxygen to maintain saturation greater than 90%. Wean off as tolerated degree of hypoxia seems to be more significant than infiltrates seen on CT scan Echocardiogram was relatively normal once again not explaining her significant hypoxemia Hypoxia continues to improve steroids have been changed to p.o. (3) Bronchospasm, acute: Steroids and prednisone p.o. continues with Scheduled nebulizer treatm ents. Treat bronchopneumonia and reinforce chest physiotherapy (4) Down syndrome: Provide supportive care feels better when her father is around (5) DVT prophylaxis: Lovenox subcu Subjective Patient continues to look improved her oxygen requirements have been reduced would really like to get her off oxygen before she goes home Review of Systems Review of Systems: ROS: well nourished well developed. Patient has Down syndrome and her view of systems is somewhat brief she only answers yes or no to me No double vision blurry vision No problems with speech or swallowing No palpitations, chest pain or pressure Still with occasional dyspnea on exertion and a nonproductive cough No abdominal pain nausea vomiting diarrhea changes in appetite or weight No burning urine urine frequency or changes in color No focal joint pain or muscle pain No skin rashes or oral lesions Physical Exam Physical Exam: The patient appeared well nourished and has phenotype of downs syndrome Vital signs as documented. Head exam is unremarkable. normocephalic, atraumatic Neck is without jugular venous distension, thyromegaly, or lymphademopathy Lungs are coarse bilaterally Cardiac exam reveals Rhythm is regular. First and second heart sounds normal. Abdominal exam reveals normal bowel sounds, no masses, no organomegaly Extremities are nonedematous and both pedal pulses are present Neurologic exam is Alert and follows commands, no focal deficits, strength is equal bilateral Psychologically seems anxious at times Skin is warm Dry without bruises or lesions Results & Data Vital Signs (Past 12 Hours) Vital Signs Temp Pulse Resp BP BP Pulse Ox 10/20/18 11:09 95 H 18 94 10/20/18 07:40 36.3 C L 57 L 18 126/76 93 10/20/18 07:29 64 16 95 07/29/19 03:12 36.7 C 74 18 108/61 92 PG Care Time/CCT Total # of Minutes Spent Total Time Spent with Patient: Total time spent is greater than 50% in coordination of care (as documented) at patient's floor/unit and/or counseling patient:
[2018-10-20] MEDS: ACETAMINOPHEN 325 MG TAB PO PRN (14:55)
--- NOTE | 2018-10-20 15:07 | Infectious Disease Progress Nt ---
Date of Service October 20, 2018 Assessment & Plan (1) Pneumonia: 33-year-old female with Down syndrome with pneumonia with significant hypoxia, with subjective improvement but with persistent hypoxia and elevated white blood cell count. For now, would continue patient on current IV antibiotics. Repeat procalcitonin remains normal. Will follow. Subjective Patient continues to look improved her oxygen requirements have been reduced . Remains afebrile. Review of Systems Review of Systems: Unobtainable due to cognitive status Physical Exam Constitutional: WD/WN, vitals as above comfortable; no acute distress Eyes: PERRL, conjunctivae normal, anicteric sclerae ENMT: external ear and nose normal, oropharynx normal Neck: trachea midline, no thyromegaly neck nontender Respiratory: normal percussion; no respiratory distress and does not use accessory muscles Auscultation: + rhonchi (Few left-sided) Cardiovascular: Rate/Rhythm: regular rate and regular rhythm Heart Sounds: normal S1 and normal S2; no gallop, no murmur and no cardiac rub Vessels: normal peripheral pulses; no JVD Gastrointestinal (Abdomen): normal bowel sounds, soft, nontender, no hepatosplenomegaly Musculoskeletal: no cyanosis or clubbing, extremities motor strength 5/5 Spine: thoracic spine normal to inspection and lumbar spine normal to inspection; no cervical spinal tenderness Skin: no rashes, warm and dry normal turgor; no lesions Neurologic: moves all extremities; no focal motor deficits Psychiatric: Orientation: alert and cooperative Lymphatic: no cervical or axillary lymphadenopathy no inguinal lymphadenopathy Results & Data Vital Signs (Past 12 Hours) Vital Signs Temp Pulse Resp BP BP Pulse Ox 10/20/18 15:00 94 H 18 146/95 H 92 10/20/18 14:45 36.8 C 110 H 22 174/80 H 92 10/20/18 11:09 95 H 18 94 10/20/18 07:40 36.3 C L 57 L 18 126/76 93 10/20/18 07:29 64 16 95 10/20/18 03:12 36.7 C 74 18 108/61 92 Laboratory Results Short CBC 10/20/18 Range/Units 06:39 WBC 16.16 H (4.8-10.8) K/uL Hgb 13.0 (12.0-16.0) g/dL Hct 39.8 (37-47) % Plt Count 331 (130-400) K/uL BMP 10/20/18 06:39 Sodium 140 Potassium 4.3 Chloride 104 Carbon Dioxide 28 BUN 17 Creatinine 0.99 Glucose 112 H Calcium 8.5 Diagnostic Findings Microbiology 10/15/18 14:25 Blood Aerobic Blood Culture - Final No growth in Aerobic bottle after 5 days. 10/15/18 14:25 Blood Anaerobic Blood Culture - Final No growth in Anaerobic bottle after 5 days. 10/15/18 14:34 Blood Aerobic Blood Culture - Final No growth in Aerobic bottle after 5 days. 10/15/18 14:34 Blood Anaerobic Blood Culture - Final No growth in Anaerobic bottle after 5 days. (1) Pneumonia Laterality: unspecified laterality Lung location: unspecified part of lung Pneumonia type: due to unspecified organism Qualified Code(s): J18.9 - Pneumonia, unspecified organism
[2018-10-20] MEDS ORDERED: POLYETHYLENE (MIRALAX) 17 GM PACK PO PRN (15:10)
[2018-10-20] MEDS ORDERED: ALUMINUM/MAGNESIUM/SIMETH (MAALOX MAX) 30 ML UDC PO PRN (15:10)
[2018-10-20 16:56] LABS: Albumin Level 3.1 gm/dl (3.4-5.0); BUN Creatinine Ratio 15.6 (10-20); Calcium 8.4 mg/dl (8.5-10.1); Creatinine Clr Calc Pharmacy 86.5 ml/min; Est GFR (African American) 79.2; Est GFR (Non-African American) 68.3
[2018-10-20 17:11] LABS: Albumin Globulin Ratio 0.7 (0.9-2); Bilirubin,Total 0.2 mg/dl (0.2-1); Globulin 4.5 gm/dl (2.5-4.0); Total Protein 7.6 gm/dl (6.4-8.2)
--- NOTE | 2018-10-20 21:10 | Ultrasound Report ---
US liver CLINICAL HISTORY: Right upper quadrant abdominal pain COMPARISON STUDY: No previous studies for comparison. FINDINGS: The study was technically difficult. The patient was unable to cooperate fully with the carmen dy. Pancreas is nonvisualized. There is increased hepatic echogenicity, nonspecific finding most often seen in hepatic steatosis. No gallstones are visualized. There is no ductal dilatation. The common bile duct measured 2 mm. There is no right-sided hydronephrosis. IMPRESSION: 1. Increased hepatic echogenicity, a nonspecific finding most often seen in hepatic steatosis 2. No gallstones identified. No evidence of ductal dilatation 3. Nondiagnostic evaluation of the pancreas Electronically signed by: Brent Bianchi M.D. 10/20/2018 9:08 PM
[2018-10-20] MEDS: AZITHROMYCIN 250 MG TAB PO SCH (21:24)
[2018-10-20] MEDS: ENOXAPARIN INJ 40 MG/0.4 ML SYR SQ SCH (21:25)
[2018-10-21] MEDS: LINEZOLID 600 MG/300 ML BAG IV SCH ×2 (03:09→13:27)
[2018-10-21] MEDS: ALBUT/IPRATROP 3MG/0.5MG NEB 3 ML VIAL NEB SCH ×4 (07:03→19:06)
[2018-10-21 07:50] LABS: Hematocrit (blood only) 39.3 % (37-47); Mean Corpuscular Hgb Conc 33.1 g/dL (32-36); Mean Corpuscular Volume 97.5 fL (80-100); Mean Platelet Volume 9.8 fL (7.4-10.4); Platelet Count 285 K/uL (130-400); RDW Coefficient of Variation 15.1 % (11.5-14.5); RDW Standard Deviation 53.1 fL (36.4-46.3); Red Blood Count 4.03 M/uL (4.2-5.4); White Blood Count 10.68 K/uL (4.8-10.8)
[2018-10-21 08:19] LABS: BUN Creatinine Ratio 18.5 (10-20); Calcium 8.3 mg/dl (8.5-10.1); Creatinine Clr Calc Pharmacy 96.6 ml/min; Est GFR (African American) 91.3; Est GFR (Non-African American) 78.8; Potassium 3.9 mmol/L (3.5-5.1)
[2018-10-21] MEDS: guaiFENesin 600 MG TABCR PO SCH ×2 (08:47→20:29)
[2018-10-21] MEDS: predniSONE 20 MG TAB PO SCH (08:47)
[2018-10-21] MEDS: BENZONATATE 100 MG CAPSULE PO SCH ×3 (08:47→20:29)
--- NOTE | 2018-10-21 09:48 | Hospitalist Progress Note ---
Date of Service October 21, 2018 Assessment & Plan (1) Bronchopneumonia: Continue intravenous Zyvox and azithromycin. Chest CT shows infiltrates present but not significantly large to explain hypoxia White blood cell count has reduced After adding Zyvox to cover MRSA patient is seemingly clinically improved although no cultures to direct our care; Will order repeat x-ray. Patient has been improving slowly, unsure if this will be her new baseline. Given that she is obese likely is playing arole as well. Will await input from pulmonary. (2) Acute respiratory failure with hypoxia: Supplemental oxygen to maintain saturation greater than 90%. Wean off as tolerated degree of hypoxia seems to be more significant than infiltrates seen on CT scan Echocardiogram was relatively normal once again not explaining her significant hypoxemia Hypoxia continues to improve steroids have been changed to p.o. (3) Bronchospasm, acute: Steroids and prednisone p.o. continues with Scheduled nebulizer treatments. Treat bronchopneumonia and reinforce chest physiotherapy (4) Down syndrome: Provide supportive care feels better when her father is around (5) [facility] Spent 35 minutes in management of patient. This included chart review. Discussion with specialist Subjective This is first day interacting with this patient. She is a pleasant 33 yo female who does not provide significant history. She does appear to be somewhat comfortable in bed and wears oxymask. Cannot subjectively state that she is improved as compared to yesterday. Review of Systems Review of Systems: Unobtainable due to cognitive status Physical Exam Physical Exam: The patient appeared well nourished and has phenotype of downs syndrome Vital signs as documented. Head exam is unremarkable. normocephalic, atraumatic Neck is without jugular venous distension, thyromegaly, or lymphademopathy Lungs are clear, with mild rhochi. Cardiac exam reveals Rhythm is regular. First and second heart sounds normal. Abdominal exam reveals normal bowel sounds, no masses, no organomegaly Extremities are nonedematous and both pedal pulses are present Neurologic exam is Alert and follows commands, no focal deficits, strength is equal bilateral Psychologically seems anxious at times Skin is warm Dry without bruises or lesions Results & Data Vital Signs (Past 12 Hours) Vital Signs Temp Pulse Pulse Resp BP Pulse Ox 10/21/18 07:26 36.7 C 70 16 140/82 98 10/21/18 07:22 98 H 10/21/18 07:03 88 20 97 10/21/18 06:35 20 94 10/21/18 05:15 93 10/21/18 04:00 36.7 C 86 20 130/78 96 10/21/18 00:00 36.6 C 96 H 80 20 148/85 H 96 PG Care Time/CCT Total # of Minutes Spent Total Time Spent with Patient: Total time spent is greater than 50% in coordination of care (as documented) at patient's floor/unit and/or counseling patient:
--- NOTE | 2018-10-21 11:33 | XRay Report ---
XR chest 1V portable HISTORY: hypoxia COMPARISON: Chest 10/17/2018. FINDINGS: No pneumothorax. No pleural effusions. The heart remains mildly enlarged. Mild pulmonary va scular congestion has improved. No new focal lung consolidations to suggest pneumonia. IMPRESSION: Improvement in the mild pulmonary vascular congestion. Electronically signed by: Shin Villavicencio M.D. 10/21/2018 11:32 AM
--- NOTE | 2018-10-21 18:02 | Infectious Disease Progress Nt ---
Date of Service October 21, 2018 Assessment & Plan (1) Pneumonia: 33-year-old female with Down syndrome with pneumonia with significant hypoxia, with subjective improvement but with persistent hypoxia and elevated white blood cell count. For now, would continue patient on current IV antibiotics. Repeat procalcitonin remains normal. Will follow. Subjective Patient continues to look improved her oxygen requirements have been reduced . Remains afebrile. Review of Systems Review of Systems: Unobtainable due to cognitive status Physical Exam Constitutional: WD/WN, vitals as above comfortable; no acute distress Eyes: PERRL, conjunctivae normal, anicteric sclerae ENMT: external ear and nose normal, oropharynx normal Neck: trachea midline, no thyromegaly neck nontender Respiratory: normal percussion; no respiratory distress and does not use accessory muscles Auscultation: + rhonchi (Few left-sided) Cardiovascular: Rate/Rhythm: regular rate and regular rhythm Heart Sounds: normal S1 and normal S2; no gallop, no murmur and no cardiac rub Vessels: normal peripheral pulses; no JVD Gastrointestinal (Abdomen): normal bowel sounds, soft, nontender, no hepatosplenomegaly Musculoskeletal: no cyanosis or clubbing, extremities motor strength 5/5 Spine: thoracic spine normal to inspection and lumbar spine normal to inspection; no cervical spinal tenderness Skin: no rashes, warm and dry normal turgor; no lesions Neurologic: moves all extremities; no focal motor deficits Psychiatric: Orientation: alert and cooperative Lymphatic: no cervical or axillary lymphadenopathy no inguinal lymphadenopathy Results & Data Vital Signs (Past 12 Hours) Vital Signs Temp Pulse Pulse Resp BP Pulse Ox 10/21/18 15:29 100 H 20 92 10/21/18 15:12 37.2 C 91 H 16 129/70 93 10/21/18 11:35 36.5 C 89 16 127/73 93 10/21/18 11:16 83 20 94 10/21/18 07:26 36.7 C 70 16 140/82 98 10/21/18 07:22 98 H 10/21/18 07:03 88 20 97 10/21/18 06:35 20 94 Laboratory Results Short CBC 10/21/18 Range/Units 07:21 WBC 10.68 (4.8-10.8) K/uL Hgb 13.0 (12.0-16.0) g/dL Hct 39.3 (37-47) % Plt Count 285 (130-400) K/uL BMP 10/21/18 07:21 Sodium 139 Potassium 3.9 Chloride 105 Carbon Dioxide 29 BUN 18 Creatinine 0.96 Glucose 74 Calcium 8.3 L Diagnostic Findings Microbiology 10/15/18 14:25 Blood Aerobic Blood Culture - Final No growth in Aerobic bottle after 5 days. 10/15/18 14:25 Blood Anaerobic Blood Culture - Final No growth in Anaerobic bottle after 5 days. 10/15/18 14:34 Blood Aerobic Blood Culture - Final No growth in Aerobic bottle after 5 days. 10/15/18 14:34 Blood Anaerobic Blood Culture - Final No growth in Anaerobic bottle after 5 days. (1) Pneumonia Laterality: unspecified laterality Lung location: unspecified part of lung Pneumonia type: due to unspecified organism Qualified Code(s): J18.9 - Pneumonia, unspecified organism
[2018-10-21] MEDS: ENOXAPARIN INJ 40 MG/0.4 ML SYR SQ SCH (20:28)
[2018-10-21] MEDS: AZITHROMYCIN 250 MG TAB PO SCH (20:29)
--- NOTE | 2018-10-22 00:08 | Consultation Report ---
DATE OF CONSULTATION: 10/21/2018 DATE OF CONSULTATION: 10/21/2018 REASON FOR CONSULT: Bronchopneumonia. HISTORY OF PRESENT ILLNESS: A 33-year-old white female with Down syndrome, was admitted on the with a 1 week history of nonproductive cough, progressive shortness of breath and wheezing. Apparently, the history was given to the ER physician hospitalist by the father who is the sole real time analyst. She was brought to the ER by EMS with O2 sat of 84%. CT scan of the chest suggested a left lower lobe pneumonia. She was supplemented with 4 liters oxygen and had a white count of 13,900. She was started on IV Rocephin, azithromycin along with Solu-Medrol and aerosolized bronchodilator. There is no report of obvious acute and chronic aspiration. The patient is nonverbal for me. I asked her nurse, Ophelia Lai, to attend to the patient by bedside in order to answer some of my questions. She states that within the past 24 hours, the patient has not been verbal, but has spoken a few words to her and did eat her breakfast without any obvious choking episode, etc. Currently, she is being supported with an OxyMask with current O2 supplementation and appears sweaty and did mildly diaphoretic. Echocardiography done during this stay shows LVEF of 70%, no visualized VSD or ASD. Dr. Gallegos consult to me today as her progress has been slow. According to the roommate, the patient has been coughing nonstop to the point where she was concerned about the patient catching her breath. Infectious disease consultation has been obtained, Dr. Alston, on the . The patient's white count is increased to 21,000 although Solu-Medrol has been used. Chest x-ray on the suggested mildly progressive components of CHF and now perhaps a new infiltrate at the right medial base. No additional history has been obtained given the patient is nonverbal. PHYSICAL EXAMINATION: VITAL SIGNS: Today blood pressure 127/73, pulse 89 and regular, respiratory rate 16, temperature 36.5, O2 sat 93% on OxyMask at 2 liters. SKIN: Without lesion. HEENT: Atraumatic, normocephalic. PERRLA. LUNGS: Scattered rhonchi over the large airway with some rales at the left base and decreased breath sounds bilaterally. CARDIAC: Regular rhythm. I do not appreciate a gallop. ABDOMEN: Soft, protuberant. EXTREMITIES: No significant pedal edema, clubbing or cyanosis. NEUROLOGICAL: No obvious lateralizing signs. The patient does not acknowledge my questions and is nonverbal. OTHER LABORATORY DATA: On admission, white count was 13,900, H&H 13.2 and 38.3 with a leftward shift. White count has come down to 10,600, H&H 13 and 39. PT, PTT within normal limits. Calculated CO2 of 29, BUN 18, creatinine 0.96. ALT was mildly elevated at 125, albumin 3.1. Procalcitonin was normal on admission. CT scan of the chest on admission was reviewed and suggested left lower lobe airspace opacities consistent with pneumonia. Chest x-ray on 10/17/2018 suggested progressive components of CHF and today's x-ray shows some slight improvement in the pulmonary vascular congestion. I can still see a retrocardiac infiltrate. OVERALL ASSESSMENT: A 33-year-old Down syndrome white female admitted with acute hypoxic and hypercapnic respiratory failure with community-acquired left lower lobe pneumonia, seems to be improving. I believe there was an element of congestive heart failure in the interim. Difficult to know how much better patient is given her nonverbal skills. I have asked the nurse to call me when her father arrives at the hospital in the afternoon, so I can discuss her clinical progress with him as he knows her better than anybody. I still have concerns about acute and chronic aspiration despite the lack of obvious aspiration when her eating has been observed.
[2018-10-22] MEDS: LINEZOLID 600 MG/300 ML BAG IV SCH ×2 (01:23→13:30)
[2018-10-22 05:51] LABS: Hematocrit (blood only) 40.2 % (37-47); Hemoglobin 13.4 g/dL (12.0-16.0); Mean Corpuscular Hgb Conc 33.3 g/dL (32-36); Mean Corpuscular Volume 98.5 fL (80-100); Mean Platelet Volume 10.1 fL (7.4-10.4); Platelet Count 321 K/uL (130-400); RDW Coefficient of Variation 14.8 % (11.5-14.5); RDW Standard Deviation 52.5 fL (36.4-46.3); Red Blood Count 4.08 M/uL (4.2-5.4); White Blood Count 16.26 K/uL (4.8-10.8)
[2018-10-22 06:25] LABS: BUN Creatinine Ratio 18.9 (10-20); Calcium 8.6 mg/dl (8.5-10.1); Creatinine Clr Calc Pharmacy 90.9 ml/min; Est GFR (African American) 84.9; Est GFR (Non-African American) 73.2; Potassium 3.9 mmol/L (3.5-5.1)
[2018-10-22] MEDS: ALBUT/IPRATROP 3MG/0.5MG NEB 3 ML VIAL NEB SCH ×4 (07:10→19:32)
[2018-10-22] MEDS: guaiFENesin 600 MG TABCR PO SCH ×2 (08:07→21:33)
[2018-10-22] MEDS: predniSONE 20 MG TAB PO SCH (08:07)
[2018-10-22] MEDS: BENZONATATE 100 MG CAPSULE PO SCH ×3 (08:07→21:33)
--- NOTE | 2018-10-22 13:40 | Fluoroscopy Report ---
FL video swallow HISTORY: Aspiration assess for aspiration TECHNIQUE: Video fluoroscopic evaluation of swallowing was performed in the AP and lateral projection s by the speech pathology staff. The patient is fed nectar-thick and thin liquid barium, a barium coa aftab wafer, and barium pudding. FLUOROSCOPY TIME: 2.1 minutes NUMBER OF FLUOROSCOPIC IMAGES: 495 COMPARISON STUDY: None. FINDINGS: There is normal hyoid excursion and epiglottic deflection. No significant penetration or as piration identified. Swallowing function is within normal limits. Mild esophageal dysmotility IMPRESSION: 1. No aspiration identified. Mild esophageal dysmotility 2. Please see the speech pathologist report for detailed findings and recommendations. The above report was generated using voice recognition software. It may contain grammatical, syntax or spelling errors. Electronically signed by: Rio Sotelo M.D. 10/22/2018 1:38 PM
--- NOTE | 2018-10-22 14:59 | Progress Note ---
DATE: 10/22/2018 PULMONARY MEDICINE PROGRESS NOTE Chart reviewed, the patient examined. SUBJECTIVE: The patient is nonverbal and I did not get a chance to touch base with the family member as apparently the father came in last evening. Her roommate states as well as the nurses that although she has had some paroxysms of coughing, mostly this morning. She is much more comfortable with her breathing. She is tolerating her noninvasive positive pressure ventilation. She is resting comfortably, smiled for me and exhibiting no signs of respiratory distress. OBJECTIVE: CURRENT VITAL SIGNS: Blood pressure 144/86, pulse 111 and regular, respiratory rate 20, temperature 36.5, O2 sat 98% on 2 liters. SKIN: Warm and dry. HEENT: Atraumatic, normocephalic. PERRLA. LUNGS: Scattered rhonchi, but otherwise clear to P and A. CARDIAC: Regular rate and rhythm. I do not appreciate a gallop. ABDOMEN: Soft, protuberant. EXTREMITIES: No pedal edema, clubbing or cyanosis. NEUROLOGIC: Intact. No lateralizing signs. LABORATORY DATA: White count today 16,000, H and H 13 and 40, BUN 19, creatinine 1.02. Video swallow today showed no aspiration identified, mild esophageal dysmotility. Chest x-ray yesterday showed improvement in the mild pulmonary vascular congestion. There may still be a left lower lobe retrocardiac infiltrate. OVERALL ASSESSMENT: A 33-year-old with Down syndrome, admitted with community acquired pneumonia with improvement. I have witnessed her twice now eating with no obvious signs of aspiration and with a negative video swallow, although silent aspiration may play a role. At this point in time, I do not see an indication for bronchoscopic intervention. We will discuss her care and clinical progress with her family when they are available to speak with me.
[2018-10-22] MEDS: ONDANSETRON INJ 2 MG/ML 2 ML VIAL IV PRN (18:45)
--- NOTE | 2018-10-22 19:35 | Infectious Disease Progress Nt ---
Date of Service October 22, 2018 Assessment & Plan (1) Pneumonia: 33-year-old female with Down syndrome with pneumonia with significant hypoxia, with subjective improvement but with persistent hypoxia and elevated white blood cell count. For now, would continue patient on current IV antibiotics. Repeat procalcitonin remains normal. Will follow. Subjective Patient continues to look improved her oxygen requirements have been reduced . Remains afebrile. Review of Systems Review of Systems: Unobtainable due to cognitive status Physical Exam Constitutional: WD/WN, vitals as above comfortable; no acute distress Eyes: PERRL, conjunctivae normal, anicteric sclerae ENMT: external ear and nose normal, oropharynx normal Neck: trachea midline, no thyromegaly neck nontender Respiratory: normal percussion; no respiratory distress and does not use accessory muscles Auscultation: + rhonchi (Few left-sided) Cardiovascular: Rate/Rhythm: regular rate and regular rhythm Heart Sounds: normal S1 and normal S2; no gallop, no murmur and no cardiac rub Vessels: normal peripheral pulses; no JVD Gastrointestinal (Abdomen): normal bowel sounds, soft, nontender, no hepatosplenomegaly Musculoskeletal: no cyanosis or clubbing, extremities motor strength 5/5 Spine: thoracic spine normal to inspection and lumbar spine normal to inspection; no cervical spinal tenderness Skin: no rashes, warm and dry normal turgor; no lesions Neurologic: moves all extremities; no focal motor deficits Psychiatric: Orientation: alert and cooperative Lymphatic: no cervical or axillary lymphadenopathy no inguinal lymphadenopathy Results & Data Vital Signs (Past 12 Hours) Vital Signs Temp Pulse Pulse Resp BP Pulse Ox 10/22/18 15:48 102 H 18 93 10/22/18 15:00 36.8 C 90 18 129/82 91 10/22/18 12:25 36.5 C 111 H 20 144/86 H 98 10/22/18 11:14 85 18 92 10/22/18 08:17 36.7 C 95 H 18 136/76 90 10/22/18 07:35 71 Laboratory Results Short CBC 10/22/18 Range/Units 05:32 WBC 16.26 H (4.8-10.8) K/uL Hgb 13.4 (12.0-16.0) g/dL Hct 40.2 (37-47) % Plt Count 321 (130-400) K/uL BMP 10/22/18 05:32 Sodium 140 Potassium 3.9 Chloride 104 Carbon Dioxide 31 BUN 19 H Creatinine 1.02 Glucose 85 Calcium 8.6 Diagnostic Findings Microbiology 10/15/18 14:25 Blood Aerobic Blood Culture - Final No growth in Aerobic bottle after 5 days. 10/15/18 14:25 Blood Anaerobic Blood Culture - Final No growth in Anaerobic bottle after 5 days. 10/15/18 14:34 Blood Aerobic Blood Culture - Final No growth in Aerobic bottle after 5 days. 10/15/18 14:34 Blood Anaerobic Blood Culture - Final No growth in Anaerobic bottle after 5 days. FL video swallow HISTORY: Aspiration assess for aspiration TECHNIQUE: Video fluoroscopic evaluation of swallowing was performed in the AP and lateral projections by the speech pathology staff. The patient is fed nectar-thick and thin liquid barium, a barium coated wafer, and barium pudding. FLUOROSCOPY TIME: 2.1 minutes NUMBER OF FLUOROSCOPIC IMAGES: 495 COMPARISON STUDY: None. FINDINGS: There is normal hyoid excursion and epiglottic deflection. No significant penetration or aspiration identified. Swallowing function is within normal limits. Mild esophageal dysmotility IMPRESSION: 1. No aspiration identified. Mild esophageal dysmotility 2. Please see the speech pathologist report for detailed findings and recommendations. The above report was generated using voice recognition software. It may contain grammatical, syntax or spelling errors. Electronically signed by: Rio Sotelo M.D. 10/22/2018 1:38 PM Dictated: 10/22/18 1337 Transcribed: 10/22/187 (1) Pneumonia Laterality: unspecified laterality Lung location: unspecified part of lung Pneumonia type: due to unspecified organism Qualified Code(s): J18.9 - Pneumonia, unspecified organism
[2018-10-22] MEDS ORDERED: METOCLOPRAMIDE HCL INJ 5 MG/ML 2 ML VIAL IV STA (19:45)
[2018-10-22] MEDS ORDERED: PROMETHAZINE HCL 12.5 MG in SODIUM CHLORIDE 0.9% 50 ML IV STA (20:07)
[2018-10-22] MEDS ORDERED: POTASSIUM CHLORIDE 10 MEQ in D5W AND NSS 1,000 ML IV SCH (20:15)
--- NOTE | 2018-10-22 20:33 | XRay Report ---
KUB CLINICAL HISTORY: Intractable vomiting. FINDINGS: 2 AP supine abdominal radiographs are obtained. No prior studies are available for comparis on at the time of dictation. There are mildly distended loops of small bowel which measure up to 3.6 cm. Retained enteric contrast is noted in the distal small bowel and the right colon. No evidence of intraperitoneal free air is seen on these supine images. There are no abnormal abdominal calcificatio ns. The bony structures appear intact. IMPRESSION: 1. There are distended loops of small bowel, which likely represent small bowel obstruction. 2. Retained enteric contrast is noted in the distal small bowel and right colon. Clinical correlation will be required. Electronically signed by: Caesar Melendez M.D. 10/22/2018 8:32 PM
[2018-10-22] MEDS: ENOXAPARIN INJ 40 MG/0.4 ML SYR SQ SCH (21:33)
--- NOTE | 2018-10-22 23:43 | Hospitalist Progress Note ---
Date of Service October 22, 2018 Assessment & Plan (1) Bronchopneumonia: Continue intravenous Zyvox and azithromycin. Chest CT shows infiltrates present but not significantly large to explain hypoxia White blood cell count has reduced After adding Zyvox to cover MRSA patient is seemingly clinically improved although no cultures to direct our care; Patient has been improving slowly, unsure if this will be her new baseline. Given that she is obese likely is playing arole as well. Will obtain speech eval today. Concern over aspiration pneumonia playing a role in this. (2) Acute respiratory failure with hypoxia: Supplemental oxygen to maintain saturation greater than 90%. Wean off as tolerated degree of hypoxia seems to be more significant than infiltrates seen on CT scan Echocardiogram was relatively normal once again not explaining her significant hypoxemia Hypoxia continues to improve steroids have been changed to p.o. (3) Bronchospasm, acute: Steroids and prednisone p.o. continues with Scheduled nebulizer treatments. Treat bronchopneumonia and reinforce chest physiotherapy (4) Down syndrome: Provide supportive care feels better when her father is around (5) DVT prophylaxis: [facility] Spent 25 minutes in management of patient. Subjective Patient is sitting in a chair and comfortable. Patient denies any new complaints at this time. Review of Systems Review of Systems: Other Patient is non verbal, she does answer yes and no questions. Physical Exam Constitutional: WD/WN, vitals as above comfortable; no acute distress Eyes: PERRL, conjunctivae normal, anicteric sclerae ENMT: external ear and nose normal, oropharynx normal Neck: trachea midline, no thyromegaly neck nontender Respiratory: normal percussion; no respiratory distress and does not use accessory muscles Auscultation: + rhonchi (Few left-sided) Cardiovascular: Rate/Rhythm: regular rate and regular rhythm Heart Sounds: normal S1 and normal S2; no gallop, no murmur and no cardiac rub Vessels: normal peripheral pulses; no JVD Gastrointestinal (Abdomen): normal bowel sounds, soft, nontender, no hepatosplenomegaly Musculoskeletal: no cyanosis or clubbing, extremities motor strength 5/5 Spine: thoracic spine normal to inspection and lumbar spine normal to inspection; no cervical spinal tenderness Skin: no rashes, warm and dry normal turgor; no lesions Neurologic: moves all extremities; no focal motor deficits Psychiatric: Orientation: alert and cooperative Lymphatic: no cervical or axillary lymphadenopathy no inguinal lymphadenopathy Results & Data Vital Signs (Past 12 Hours) Vital Signs Temp Pulse Resp BP Pulse Ox 10/22/18 19:39 36.9 C 104 H 22 153/82 H 93 10/22/18 15:48 102 H 18 93 10/22/18 15:00 36.8 C 90 18 129/82 91 10/22/18 12:25 36.5 C 111 H 20 144/86 H 98 PG Care Time/CCT Total # of Minutes Spent Total Time Spent with Patient: Total time spent is greater than 50% in coordination of care (as documented) at patient's floor/unit and/or counseling patient:
[2018-10-23] MEDS: LINEZOLID 600 MG/300 ML BAG IV SCH ×2 (03:00→13:52)
[2018-10-23] MEDS: ONDANSETRON INJ 2 MG/ML 2 ML VIAL IV PRN (05:03)
[2018-10-23] MEDS: ALBUT/IPRATROP 3MG/0.5MG NEB 3 ML VIAL NEB SCH ×4 (07:08→19:52)
[2018-10-23] MEDS: BENZONATATE 100 MG CAPSULE PO SCH ×3 (10:51→21:24)
[2018-10-23] MEDS: guaiFENesin 600 MG TABCR PO SCH ×2 (10:51→21:24)
[2018-10-23] MEDS: predniSONE 20 MG TAB PO SCH (10:51)
[2018-10-23 14:04] LABS: Base Excess ABG 4.3 mEq/L (-9-1.8); HCO3 ABG 30 mmol/L (19-24); Oxygen Saturation ABG 95.5 % (90-95); PCO2 ABG 50 mmHg (35-46); PO2 ABG 76 mm/Hg (80-95)
--- NOTE | 2018-10-23 14:04 | Progress Note ---
DATE: 10/23/2018 PULMONARY MEDICINE PROGRESS NOTE Chart reviewed, the patient examined. SUBJECTIVE: The patient is nonverbal. Apparently, had an episode of emesis last night and a KUB film was obtained which suggested some distended small bowel loops which could in turn suggest a partial small-bowel obstruction. According to the nursing staff, the patient has had 3 bowel movements within the last 24 hours, mostly incontinent. The stools have been well formed. She appears more somnolent today, but is arousable with no discernible sign of respiratory distress. I spoke with the hospitalist, Dr. Gallegos who would like to get a CAT scan of the abdomen and pelvis given the findings on KUB last night. OBJECTIVE: CURRENT VITAL SIGNS: Blood pressure 119/74, pulse 81 and regular, respiratory rate 18, temperature 36.8, O2 sat 95% on 2 liters. SKIN: Without lesion. HEENT: Atraumatic, normocephalic. PERRLA. LUNGS: Decreased breath sounds with scattered rhonchi, otherwise relatively clear. CARDIAC: Regular rate and rhythm. I do not appreciate a gallop. ABDOMEN: Soft, protuberant. The patient does not appear overly distended or even tender that I can discern. Once again, the history is difficult to glean. EXTREMITIES: Show no pedal edema, clubbing or cyanosis. OVERALL ASSESSMENT: A 33-year-old community-acquired pneumonia, possible aspiration, now with a questionable partial small-bowel obstruction. CAT scan of the abdomen and pelvis pending. We will try to contact the patient's father today for additional history.
[2018-10-23 14:37] LABS: Allen Test Pos (Pos)
[2018-10-23] MEDS ORDERED: IOVERSOL 100ml IV PRN (15:48)
--- NOTE | 2018-10-23 16:15 | CT Scan Report ---
ABDOMEN AND PELVIS CT WITH IV AND ORAL CONTRAST CT DOSE: 1405.27 mGy.cm HISTORY: Acute generalized abdominal pain with bowel distention and vomiting SMALL BOWEL OBSTRUCTION TECHNIQUE: Multiaxial CT images of the abdomen and pelvis were performed following the use of intrave nous and oral contrast. A dose lowering technique was utilized adhering to the principles of ALARA. COMPARISON STUDY: KUB of same day, chest CT 10/15/2018, video swallow 10/22/2018 FINDINGS: There is mildly improved aeration of the basal left lower lobe. Linear consolidative bibasilar opacit ies are noted. Evaluation of the lung bases is limited secondary to respiratory motion artifact. Ther e is no pneumatosis or pneumoperitoneum. Imaged inferior cardiac chambers are unremarkable. Gallbladd er, spleen, liver and adrenal glands are unremarkable. Kidneys, and ureters are within normal limits. Moderate distention of the urinary bladder. Pelvic basin calcifications suggest probable phleboliths . Uterus and left adnexum are unremarkable. Cystic lesion of the right adnexa measures 3.7 x 3.3 cm. Aorta and IVC are unremarkable. There is no adenopathy. No small bowel obstruction or bowel wall thickening identified. Mild gaseous distention of the large bowel. Enteric contrast is noted throughout the large and small bowel. Appendix appears normal. Breas t parenchyma and soft tissues are within normal limits. Tiny fat filled periumbilical hernia. Bones a ppear to be intact. Moderate disc space narrowing with spondylitic spurring and circumferential annul ar disc bulge at L4-L5. IMPRESSION: 1. No bowel obstruction or bowel wall thickening. Normal appendix. 2. Cystic lesion of the right adnexum measures 3.7 x 3.3 cm. 3. Bibasilar linear consolidation suggests atelectasis. Correlate clinically to exclude pneumonia. Electronically signed by: Don Mckeon M.D. 10/23/2018 4:13 PM
--- NOTE | 2018-10-23 17:12 | Surgery Consultation ---
Date of Consultation October 23, 2018 Assessment & Plan (1) Vomiting: This patient had one episode of vomiting last night and although the KUB was indicative of a possible bowel obstruction this was not confirmed by CT. The patient is having flatus and had multiple large liquid bowel movements. I doubt bowel obstruction at this time. I would start her on a clear liquid diet. Thank you for allowing me to see this patient participating her care. We will sign off. Please let me know if there is anything else that we can do to help. History of Present Illness Reason for Consultation: Possible SBO Requesting Physician: Parish Gallegos MD Attending Physician: Parish Gallegos History of Present Illness I have been asked by Dr. Gallegos to see this 33-year-old female with a history of Down syndrome who was admitted with respiratory distress/failure and bronchopneumonia. She has been on antibiotic therapy. Last night she had an episode of emesis. There was apparently no hematemesis. The patient cannot give me a history. Her parents were present during the interview and exam. They stated that she has been feeling much better today. She was sitting on the bed when I arrived. She has had multiple bowel movements for large amounts of liquid stool with a large amount of flatus. She denies abdominal pain. She has never had previous abdominal surgery. At the present time she is hungry and thirsty Allergies Allergy/AdvReac Type Severity Reaction Status Date / Time No Known Allergies Allergy Unverified 10/15/18 14:02 Home Medications Home Medications Medication Instructions Recorded Confirmed Type No Known Home Medications 10/15/18 10/15/18 History Patient History Medical History Bronchospasm, acute (Acute) Acute respiratory failure with hypoxia (Acute) Bronchopneumonia (Acute) Down syndrome (Chronic) Right elbow pain (Acute) Family History Other No known problems Social History Communication Ability: Impaired Beliefs That Will Affect Care: None Current Living Situation: Family Feels Safe at Home: Yes Safety Concerns: Feels Safe At This Time Smoking Status: Never smoker Hx Alcohol Use: No Hx Substance Use: No Physical Exam Constitutional: no acute distress Sitting on the edge of the bed smiling Respiratory: Auscultation: + rhonchi (Scattered) Cardiovascular: Rate/Rhythm: regular rate and regular rhythm Gastrointestinal (Abdomen): Inspection/Auscultation: normal bowel sounds; abdomen not distended Percussion/Palpation: abdomen soft; abdomen nontender Skin: no rashes, warm and dry Lymphatic: no cervical lymphadenopathy Results & Data Vital Signs (Past 12 Hours) Vital Signs Temp Pulse Resp BP Pulse Ox 10/23/18 15:19 79 95 10/23/18 15:07 36.9 C 84 20 88/67 L 95 10/23/18 11:19 81 18 95 10/23/18 07:35 36.8 C 68 18 119/74 95 10/23/18 07:08 18 94 Laboratory Results 10/23/18 Range/Units 13:56 ABG pH 7.40 (7.35-7.45) ABG pCO2 50 H (35-46) mmHg ABG pO2 76 L (80-95) mm/Hg ABG HCO3 30 H (19-24) mmol/L ABG O2 Saturation 95.5 H (90-95) % ABG Base Excess 4.3 H (-9-1.8) mEq/L Ray Test Pos (Pos) Barometric Pressure 735.3 mm/Hg Oxygen Given 2L Diagnostic Findings KUB CLINICAL HISTORY: Intractable vomiting. FINDINGS: 2 AP supine abdominal radiographs are obtained. No prior studies are available for comparison at the time of dictation. There are mildly distended loops of small bowel which measure up to 3.6 cm. Retained enteric contrast is noted in the distal small bowel and the right colon. No evidence of intraperitoneal free air is seen on these supine images. There are no abnormal abdominal calcifications. The bony structures appear intact. IMPRESSION: 1. There are distended loops of small bowel, which likely represent small bowel obstruction. 2. Retained enteric contrast is noted in the distal small bowel and right colon. Clinical correlation will be required. KUB as noted above. I reviewed this with 1 of the radiologist. The contrast from the video swallow from the day before was in the right colon which would make bowel obstruction less likely. ABDOMEN AND PELVIS CT WITH IV AND ORAL CONTRAST CT DOSE: 1405.27 mGy.cm HISTORY: Acute generalized abdominal pain with bowel distention and vomiting SMALL BOWEL OBSTRUCTION TECHNIQUE: Multiaxial CT images of the abdomen and pelvis were performed following the use of intravenous and oral contrast. A dose lowering technique was utilized adhering to the principles of ALARA. COMPARISON STUDY: KUB of same day, chest CT 10/15/2018, video swallow 10/22/2018 FINDINGS: There is mildly improved aeration of the basal left lower lobe. Linear consolidative bibasilar opacities are noted. Evaluation of the lung bases is limited secondary to respiratory motion artifact. There is no pneumatosis or pneumoperitoneum. Imaged inferior cardiac chambers are unremarkable. Gallbladder, spleen, liver and adrenal glands are unremarkable. Kidneys, and ureters are within normal limits. Moderate distention of the urinary bladder. Pelvic basin calcifications suggest probable phleboliths. Uterus and left adnexum are unremarkable. Cystic lesion of the right adnexa measures 3.7 x 3.3 cm. Aorta and IVC are unremarkable. There is no adenopathy. No small bowel obstruction or bowel wall thickening identified. Mild gaseous distention of the large bowel. Enteric contrast is noted throughout the large and small bowel. Appendix appears normal. Breast parenchyma and soft tissues are within normal limits. Tiny fat filled periumbilical hernia. Bones appear to be intact. Moderate disc space narrowing with spondylitic spurring and circumferential annular disc bulge at L4-L5. IMPRESSION: 1. No bowel obstruction or bowel wall thickening. Normal appendix. 2. Cystic lesion of the right adnexum measures 3.7 x 3.3 cm. 3. Bibasilar linear consolidation suggests atelectasis. Correlate clinically to exclude pneumonia.
[2018-10-23] MEDS: ENOXAPARIN INJ 40 MG/0.4 ML SYR SQ SCH (21:23)
--- NOTE | 2018-10-23 23:10 | Hospitalist Progress Note ---
Date of Service October 23, 2018 Assessment & Plan (1) Bronchopneumonia: Continue intravenous Zyvox and azithromycin. Chest CT shows infiltrates present but not significantly large to explain hypoxia White blood cell count has reduced After adding Zyvox to cover MRSA patient is seemingly clinically improved although no cultures to direct our care; Patient has been improving slowly, unsure if this will be her new baseline. Given that she is obese likely is playing arole as well. Speech eval was negative. Appreciate input. (2) Acute respiratory failure with hypoxia: Supplemental oxygen to maintain saturation greater than 90%. Wean off as tolerated degree of hypoxia seems to be more significant than infiltrates seen on CT scan Echocardiogram was relatively normal once again not explaining her significant hypoxemia Symptomatically and subjectively patient appears to be improving. (3) Bronchospasm, acute: Steroids and prednisone p.o. continues with Scheduled nebulizer treatments. Treat bronchopneumonia and reinforce chest physiotherapy (4) Down syndrome: Provide supportive care feels better when her father is around (5) Vomiting: will obtain CT scan of abd/ pelvis. I informed father, will also consult gen surgery. Willl monitor. Update: No signs of SBO and patient felt improved by 17:00 (6) DVT prophylaxis: Lovenox subcu Spent 35 minutes in management of patient. Subjective Overnight patient had an epsidoe of abdominal pain with nausea. KUB ordered showed possible SBO. Patient today has not had a BM. Patient is non verbal and does not provide signifcant history.Patient yesterday though was having bowel movement prior to yesterdays evening episode and on 2 issues soiled the bed with stool as per nursing staff. Review of Systems Review of Systems: Unobtainable due to mental health condition Physical Exam Constitutional: WD/WN, vitals as above comfortable; no acute distress Eyes: PERRL, conjunctivae normal, anicteric sclerae ENMT: external ear and nose normal, oropharynx normal Neck: trachea midline, no thyromegaly neck nontender Respiratory: normal percussion; no respiratory distress and does not use acces dyllan muscles Auscultation: + rhonchi (Few left-sided) Cardiovascular: Rate/Rhythm: regular rate and regular rhythm Heart Sounds: normal S1 and normal S2; no gallop, no murmur and no cardiac rub Vessels: normal peripheral pulses; no JVD Gastrointestinal (Abdomen): Inspection/Auscultation: abdomen normal to inspection and + abdomen distended Percussion/Palpation: + abdomen tender (generalized; no rebound ternderness) Musculoskeletal: no cyanosis or clubbing, extremities motor strength 5/5 Spine: thoracic spine normal to inspection and lumbar spine normal to inspection; no cervical spinal tenderness Skin: no rashes, warm and dry normal turgor; no lesions Neurologic: moves all extremities; no focal motor deficits Psychiatric: Orientation: alert and cooperative Lymphatic: no cervical or axillary lymphadenopathy no inguinal lymphadenopathy Results & Data Vital Signs (Past 12 Hours) Vital Signs Temp Pulse Resp BP Pulse Ox 10/23/18 19:54 95 H 16 97 10/23/18 17:31 90 10/23/18 15:19 79 95 10/23/18 15:07 36.9 C 84 20 88/67 L 95 10/23/18 11:19 81 18 95 PG Care Time/CCT Total # of Minutes Spent Total Time Spent with Patient: Total time spent is greater than 50% in coordination of care (as documented) at patient's floor/unit and/or counseling patient:
[2018-10-24] MEDS: LINEZOLID 600 MG/300 ML BAG IV SCH ×2 (02:15→13:57)
[2018-10-24] MEDS: ALBUT/IPRATROP 3MG/0.5MG NEB 3 ML VIAL NEB SCH ×4 (07:28→19:10)
[2018-10-24] MEDS: guaiFENesin 600 MG TABCR PO SCH ×2 (07:51→21:32)
[2018-10-24] MEDS: predniSONE 20 MG TAB PO SCH (07:51)
[2018-10-24] MEDS: BENZONATATE 100 MG CAPSULE PO SCH ×3 (07:51→21:32)
--- NOTE | 2018-10-24 13:13 | Progress Note ---
DATE: 10/24/2018 PULMONARY MEDICINE PROGRESS NOTE Chart reviewed and the patient examined. SUBJECTIVE: The patient seems comfortable, smiling, watching TV. No sign of coughing. No respiratory distress. Apparently, she has been moving her bowels and no emesis noted and does not appear to be suffering at all with either GI or respiratory issues currently. I did speak with her father, Ray who adopted her several years ago and he states that he felt she was back close to baseline and has a history of mild hypersomnolence. She is currently on Zyvox and azithromycin. She was evaluated by Dr. Cunningham yesterday. Although, the KUB suggested a partial small-bowel obstruction that was not confirmed on CAT scan. She is now having large liquid bowel movements and the feeling is that there is no sign of obstruction. There does appear to be a cystic lesion of the right adnexa measuring 3.7 x 3.3 cm and has some bibasilar linear consolidation suggesting atelectasis. OBJECTIVE: CURRENT VITAL SIGNS: Blood pressure 114/78, pulse 96 and regular, respiratory rate 18, temperature 36.8, O2 sat 91% on 2 liters. SKIN: Without lesion. HEENT: Atraumatic, normocephalic. PERRLA. LUNGS: Distant P and A, scattered rales at the left base. CARDIAC: Regular rate and rhythm. No murmurs or gallops. ABDOMEN: Soft, protuberant. No evidence of hepatosplenomegaly. No rebound tenderness or guarding. EXTREMITIES: No significant pedal edema, clubbing or cyanosis. NEUROLOGICAL: No obvious lateralizing signs. LABORATORY DATA: ABGs yesterday, pH 7.40, pCO2 of 50, pO2 of 76 on 2 liters, well compensated. BUN 19, creatinine 1.02. OVERALL ASSESSMENT: A 33-year-old admitted with community-acquired pneumonia seems to be resolving on current therapy and I agree the addition of IV Zyvox has been helpful. There is no sign of small-bowel obstruction or chronic aspiration either currently or in the past according to the father's history. I would probably convert the patient to oral antibiotics, mobilize and consider discharge in the next 24-48 hours if she continues to clinically improve.
[2018-10-24] MEDS: ONDANSETRON INJ 2 MG/ML 2 ML VIAL IV PRN (13:26)
--- NOTE | 2018-10-24 15:32 | OB/GYN Consultation ---
Date of Consultation October 24, 2018 Assessment & Plan (1) Follicular cyst of right ovary: An abdominal ultrasound was attempted but was not helpful as she could not obtain a full enough bladder. I suspect that this is a physiologic cyst given the timing of her last menses. no further workup is needed at this time although imaging after her next menses, within the first 10 days of her cycle, would confirm this diagnosis as the cyst should resolve by then. I will wait to talk to her father when he visits later today about the findings and plan. History of Present Illness Attending Physician: Parish Gallegos Patient is a 33 yo nulligravida white female with Trisomy 21 who has been admitted for pneumonia. A pelvic CT scan showed a 3.7X 3.3cm right ovarian cyst that appears to be simple in nature. The patient was unable to give me any information on her menstrual cycle. However, the nurse that took care of her last week who has resumed her care this afternoon states that she had her period last week. Trudy denies any abdominal pain at this time. Allergies Allergy/AdvReac Type Severity Reaction Status Date / Time No Known Allergies Allergy Unverified 10/15/18 14:02 Home Medications Home Medications Medication Instructions Recorded Confirmed Type No Known Home Medications 10/15/18 10/15/18 History Patient History Medical History Bronchospasm, acute (Acute) Acute respiratory failure with hypoxia (Acute) Bronchopneumonia (Acute) Down syndrome (Chronic) Right elbow pain (Acute) Family History Other No known problems Social History Communication Ability: Impaired Beliefs That Will Affect Care: None Current Living Situation: Family Feels Safe at Home: Yes Safety Concerns: Feels Safe At This Time Smoking Status: Never smoker Hx Alcohol Use: No Hx Substance Use: No Physical Exam Constitutional: WD/WN, vitals as above Gastrointestinal (Abdomen): normal bowel sounds, soft, nontender, no hepatosplenomegaly Results & Data Vital Signs (Past 12 Hours) Vital Signs Temp Pulse Pulse Resp BP Pulse Ox 10/24/18 15:13 105 H 18 92 10/24/18 11:13 96 H 18 91 10/24/18 07:32 98.2 F 79 20 114/78 96 10/24/18 07:28 84 16 96 PG Care Time/CCT Total # of Minutes Spent Total Time Spent with Patient: Total time spent is greater than 50% in coordination of care (as documented) at patient's floor/unit and/or counseling patient:
[2018-10-24 18:53] LABS: Basophils # (auto) 0.01 K/uL (0-0.2); Basophils % (auto) 0.1 %; Hematocrit (blood only) 37.8 % (37-47); Hemoglobin 12.7 g/dL (12.0-16.0); Immature Granulocytes # (auto) 0.15 K/uL (0.00-0.02); Lymphocytes # (auto) 0.52 K/uL (1.2-3.4); Lymphocytes % (auto) 3.6 %; Mean Corpuscular Hgb Conc 33.6 g/dL (32-36); Mean Corpuscular Volume 95.2 fL (80-100); Mean Platelet Volume 9.7 fL (7.4-10.4); Monocytes # (auto) 0.18 K/uL (0.11-0.59); Monocytes % (auto) 1.3 %; Neutrophils # (auto) 13.54 K/uL (1.4-6.5); Platelet Count 279 K/uL (130-400); RDW Coefficient of Variation 14.4 % (11.5-14.5); RDW Standard Deviation 50.1 fL (36.4-46.3); Red Blood Count 3.97 M/uL (4.2-5.4)
[2018-10-24 19:18] LABS: BUN Creatinine Ratio 8.4 (10-20); Calcium 8.7 mg/dl (8.5-10.1); Est GFR (African American) 72.7; Est GFR (Non-African American) 62.7; Potassium 3.8 mmol/L (3.5-5.1)
[2018-10-24 19:21] LABS: Albumin Globulin Ratio 0.7 (0.9-2); Bilirubin,Total 0.3 mg/dl (0.2-1); Globulin 4.3 gm/dl (2.5-4.0); Total Protein 7.3 gm/dl (6.4-8.2)
--- NOTE | 2018-10-24 20:52 | Hospitalist Progress Note ---
Date of Service October 24, 2018 Assessment & Plan (1) Bronchopneumonia: Continue intravenous Zyvox and azithromycin. Chest CT shows infiltrates present but not significantly large to explain hypoxia White blood cell count has reduced After adding Zyvox to cover MRSA patient is seemingly clinically improved although no cultures to direct our care; Patient has been improving slowly, unsure if this will be her new baseline. Given that she is obese likely is playing arole as well. Speech eval was negative. Appreciate input from pulmonary: probably convert the patient to oral antibiotics, mobilize and consider discharge in the next 24-48 hours if she continues to clinically improve (2) Acute respiratory failure with hypoxia: Supplemental oxygen to maintain saturation greater than 90%. Wean off as tolerated degree of hypoxia seems to be more significant than infiltrates seen on CT scan Echocardiogram was relatively normal once again not explaining her significant hypoxemia Symptomatically and subjectively patient appears to be improving. (3) Bronchospasm, acute: Steroids and prednisone p.o. continues with Scheduled nebulizer treatments. Treat bronchopneumonia and reinforce chest physiotherapy (4) Down syndrome: Provide supportive care feels better when her father is around (5) Vomiting: will obtain CT scan of abd/ pelvis. I informed father, will also consult gen surgery. Willl monitor. Update: No signs of SBO and patient felt improved by 17:00 (6) Follicular cyst of right ovary: Appreciate input from COVERER. Appears to be benign and related with menses. Will need followup to confirm this is the case. (7) DVT prophylaxis: Lovenox subcu Spent 35 minutes in management of patient. Subjective Patient this AM was having bouts of nausea, and diarrhea. She improved in the afternoon once her father arrived. He reports each day, she looks better. He did have a discussion with excel analyst regarding a possible mass (shown incidentally) on the ct scan from yesterday. He states that it appears to be bening from her assessment. Review of Systems Review of Systems: Unobtainable due to cognitive status Physical Exam Physical Exam: Constitutional: WD/WN, vitals as above comfortable; no acute distress Eyes: PERRL, conjunctivae normal, anicteric sclerae ENMT: external ear and nose normal, oropharynx normal Neck: trachea midline, no thyromegaly neck nontender Respiratory: normal percussion; no respiratory distress and does not use accessory muscles Auscultation: improved breath sounds. Cardiovascular: Rate/Rhythm: regular rate and regular rhythm Heart Sounds: normal S1 and normal S2; no gallop, no murmur and no cardiac rub Vessels: normal peripheral pulses; no JVD Gastrointestinal (Abdomen): Inspection/Auscultation: abdomen normal to inspection , NT ND soft. Musculoskeletal: no cyanosis or clubbing, extremities motor strength 5/5 Spine: thoracic spine normal to inspection and lumbar spine normal to inspection; no cervical spinal tenderness Skin: no rashes, warm and dry normal turgor; no lesions Neurologic: moves all extremities; no focal motor deficits Psychiatric: Orientation: alert and cooperative Lymphatic: no cervical or axillary lymphadenopathy no inguinal lymphadenopathy Results & Data Vital Signs (Past 12 Hours) Vital Signs Temp Pulse Resp BP Pulse Ox 10/24/18 19:11 114 H 14 94 10/24/18 15:28 37.3 C 101 H 20 126/74 90 10/24/18 15:13 105 H 18 92 10/24/18 11:13 96 H 18 91 PG Care Time/CCT Total # of Minutes Spent Total Time Spent with Patient: Total time spent is greater than 50% in coordination of care (as documented) at patient's floor/unit and/or counseling patient:
[2018-10-24] MEDS: ENOXAPARIN INJ 40 MG/0.4 ML SYR SQ SCH (21:32)
[2018-10-25] MEDS: LINEZOLID 600 MG/300 ML BAG IV SCH (02:08)
[2018-10-25] MEDS: ALBUT/IPRATROP 3MG/0.5MG NEB 3 ML VIAL NEB SCH ×4 (07:14→18:51)
[2018-10-25] MEDS: guaiFENesin 600 MG TABCR PO SCH ×2 (08:57→20:10)
[2018-10-25] MEDS: predniSONE 20 MG TAB PO SCH (08:57)
[2018-10-25] MEDS: BENZONATATE 100 MG CAPSULE PO SCH ×3 (08:57→20:10)
--- NOTE | 2018-10-25 10:28 | Progress Note ---
DATE: 10/25/2018 Chart reviewed, patient examined, assessment and plan. SUBJECTIVE: No significant change from yesterday. The patient appears to be comfortable with minimal cough and no overt signs of respiratory distress. OBJECTIVE: VITAL SIGNS: Blood pressure 122/84, pulse 74 and regular, respiratory rate 20, temperature 36.7, O2 sat 96% on 2 liters. SKIN: Without lesion. HEENT: Atraumatic, normocephalic. PERRLA. LUNGS: Scattered rhonchi, otherwise distant P and A. CARDIAC: Unchanged. ABDOMEN: Soft, protuberant. No evidence of hepatosplenomegaly, rebound tenderness or guarding. EXTREMITIES: No pedal edema. ASSESSMENT AND PLAN: Stable from a cardiopulmonary standpoint. At this point in time, I will see the patient on a p.r.n. basis, but I think we are getting ready for eventual discharge. I will leave that up to the hospitalist service. I would place her on oral medicines with fairly rapid steroid taper and would be happy to see patient as an outpatient. Thank you very much for this consultation.
--- NOTE | 2018-10-25 14:56 | Hospitalist Progress Note ---
Date of Service October 25, 2018 Assessment & Plan (1) Bronchopneumonia: continue on Zyvox, clinically improving, although slowly no fever, WBC is 14k eating better minimal cough per Pulmonary she can be discharged with close follow up will try to d/c tomorrow or Saturday depending on oxygen availability (2) Acute respiratory failure with hypoxia: Supplemental oxygen to maintain saturation greater than 90%. two step done morning on 10/25 requiring 2L at rest and on exertion pneumonia is being treated, could be a degree of obesity hypoventilation that is contributing (3) Bronchospasm, acute: Steroids and prednisone p.o. continues with Scheduled nebulizer treatments. Treat bronchopneumonia and reinforce chest physiotherapy very quick taper on Prednisone on discharge (4) Down syndrome: Provide supportive care feels better when her father is around (5) Vomiting: resolved CT abdomen/pelvis was without acute infectious or inflammatory change (6) Follicular cyst of right ovary: Appreciate input from [employer]. Appears to be benign and related with menses. Will need followup to confirm this is the case. (7) DVT prophylaxis: Lovenox subcu plan for discharge in the next 1-2 days Subjective patient doing well, breathing easier, minimal cough will not answer most questions, very quiet and shy per RN, she is doing well, no issues this morning or overnight still requiring oxygen 2 step done, will require oxygen, 2L at all times appreciate note from Dr. Bowser, patient close to discharge BMP and CBC reviewed, Cr and electrolytes stable WBC is 14k from steroids Review of Systems Review of Systems: All systems reviewed & are unremarkable except as noted in HPI & below Physical Exam Constitutional: well developed, + behavioral limitations and + overweight Eyes: PERRL, conjunctivae normal, anicteric sclerae ENMT: external ear and nose normal, oropharynx normal Neck: trachea midline, no thyromegaly Respiratory: normal respiratory effort, lungs clear to auscultation Cardiovascular: RRR, no murmur, no edema Gastrointestinal (Abdomen): normal bowel sounds, soft, nontender, no hepatosplenomegaly Musculoskeletal: no cyanosis or clubbing, extremities motor strength 5/5 Skin: no rashes, warm and dry Neurologic: patellar DTR's 2+ bilat, sensation intact and PERRL, EOMI, accommodation nl, no face palsy, no dysarthria Psychiatric: Orientation: alert, oriented x 3 and + guarded Lymphatic: no cervical or axillary lymphadenopathy Results & Data Vital Signs (Past 12 Hours) Vital Signs Temp Pulse Pulse Pulse Pulse Pulse Resp 10/25/18 14:47 36.7 C 86 20 10/25/18 11:32 89 90 91 H 109 H 83 20 10/25/18 07:41 36.7 C 71 20 10/25/18 07:16 70 18 Resp Resp Resp Resp BP Pulse Ox Pulse Ox 10/25/18 14:47 138/84 90 10/25/18 11:32 20 20 18 18 92 91 10/25/18 07:41 122/84 96 10/25/18 07:16 96 Pulse Ox Pulse Ox Pulse Ox 10/25/18 14:47 10/25/18 11:32 95 92 86 L 10/25/18 07:41 10/25/18 07:16 Laboratory Results Laboratory Results - last 24 hr 10/24/18 10/24/18 18:32 18:32 WBC 14.40 H RBC 3.97 L Hgb 12.7 Hct 37.8 MCV 95.2 MCH 32.0 MCHC 33.6 RDW Std Deviation 50.1 H RDW Coeff of Jane 14.4 Plt Count 279 MPV 9.7 Immature Gran % (Auto) 1.0 Neut % (Auto) 94.0 Lymph % (Auto) 3.6 Mchenry % (Auto) 1.3 Eos % (Auto) 0.0 Baso % (Auto) 0.1 Immature Gran # (Auto) 0.15 H Neut # (Auto) 13.54 H Lymph # (Auto) 0.52 L Mchenry # (Auto) 0.18 Eos # (Auto) 0.00 Baso # (Auto) 0.01 Sodium 139 Potassium 3.8 Chloride 103 Carbon Dioxide 26 Anion Gap 10.0 BUN 10 Creatinine 1.16 Est Cr Clr Drug Dosing 80.0 Est GFR ( Amer) 72.7 Est GFR (Non-Af Amer) 62.7 BUN/Creatinine Ratio 8.4 L Glucose 192 H Calcium 8.7 Total Bilirubin 0.3 AST 32 ALT 119 H Alkaline Phosphatase 78 Total Protein 7.3 Albumin 3.0 L Globulin 4.3 H Albumin/Globulin Ratio 0.7 L Medications Administered Current Inpatient Medications Acetaminophen (Tylenol) 650 mg PO Q4H PRN PRN Reason: Pain or Fever Stop: 11/14/18 19:51 Last Admin: 10/20/18 14:55 Dose: 650 mg Documented by: Al Hydrox/Mg Hydrox/Simethicone (Maalox) 15 ml PO Q4H PRN PRN Reason: Dyspepsia Stop: 11/14/18 19:51 Al Hydrox/Mg Hydrox/Simethicone (Maalox Max) 30 ml PO Q6H PRN PRN Reason: GI Upset Stop: 11/19/18 15:09 Last Admin: 10/24/18 16:33 Dose: 30 ml Documented by: Albuterol (Duoneb) 3 ml NEB QIDR [facility] Stop: 11/14/18 19:59 Last Admin: 10/25/18 14:55 Dose: 3 ml Documented by: Benzonatate (Tessalon Perle) 100 mg PO TID [facility] Stop: 11/19/18 08:59 Last Admin: 10/25/18 13:37 Dose: 100 mg Documented by: Enoxaparin Sodium (Lovenox) 40 mg SQ QPM [facility] Stop: 11/14/18 20:59 Last Admin: 10/24/18 21:32 Dose: 40 mg Documented by: Guaifenesin (Mucinex) 600 mg PO Q12 [facility] Stop: 11/19/18 08:59 Last Admin: 10/25/18 08:57 Dose: 600 mg Documented by: Ioversol (Optiray 320 100ml) 94 ml IV ONCE PRN PRN Reason: Interaction Checking Stop: 10/27/18 15:47 Last Admin: 10/23/18 15:48 Dose: 94 ml Documented by: Ondansetron HCl (Zofran) 4 mg IV Q6H PRN PRN Reason: Nausea Stop: 11/14/18 19:51 Last Admin: 10/24/18 13:26 Dose: 4 mg Documented by: Polyethylene Glycol (Miralax Powder Packet) 17 gm PO DAILY PRN PRN Reason: Constipation Stop: 11/19/18 15:09 Prednisone (Prednisone) 40 mg PO DAILY [facility] Stop: 11/19/18 08:59 Last Admin: 10/25/18 08:57 Dose: 40 mg Documented by: PG Care Time/CCT Total # of Minutes Spent Total Time Spent with Patient: Total time spent is greater than 50% in coordination of care (as documented) at patient's floor/unit and/or counseling patient:
[2018-10-25] MEDS: ENOXAPARIN INJ 40 MG/0.4 ML SYR SQ SCH (20:11)
[2018-10-25] MEDS: ONDANSETRON INJ 2 MG/ML 2 ML VIAL IV PRN (20:52)
[2018-10-25] MEDS ORDERED: PROMETHAZINE HCL 12.5 MG in SODIUM CHLORIDE 0.9% 50 ML IV PRN (21:21)
[2018-10-25] MEDS ORDERED: PROMETHAZINE HCL 12.5 MG in SODIUM CHLORIDE 0.9% 50 ML IV ONE (21:30)
[2018-10-25] MEDS ORDERED: FAMOTIDINE 20MG/5ML IV PUSH IV ONE (21:30)
[2018-10-25] MEDS ORDERED: FAMOTIDINE 20 MG in SYRINGE 3 ML IV ONE (21:30)
[2018-10-26] MEDS: ALBUT/IPRATROP 3MG/0.5MG NEB 3 ML VIAL NEB SCH ×2 (06:54→11:26)
[2018-10-26] MEDS: guaiFENesin 600 MG TABCR PO SCH (08:00)
[2018-10-26] MEDS: predniSONE 20 MG TAB PO SCH (08:00)
[2018-10-26] MEDS: BENZONATATE 100 MG CAPSULE PO SCH ×2 (08:01→13:01)
--- NOTE | 2018-10-26 13:57 | Discharge Summary ---
Date of Service October 26, 2018 Admission HPI Per Admitting Provider 33-year-old female with Down syndrome with a one-week history of nonproductive cough, shortness of breath, wheezing. Her symptoms progressed and she was brought to the ED today by EMS. Oxygen saturation 84% on room air. Chest x-ray is negative but clinically she has bronchopneumonia. Chest CT scan pending to document presence or absence of pneumonia. She is now on 4 L of oxygen and appears to be resting comfortably. Her academic services coordinator denies any problems with dysphagia or aspiration episodes. BNP is normal. Lactic acid normal. Creatinine normal. White count 13,900. She is unable to produce any sputum for culture. She will be treated with intravenous Rocephin and a azithromycin along with Solu-Medrol and nebulizers. Principal Diagnosis Bronchopneumonia Discharge Exam Constitutional well developed, + behavioral limitations and + overweight Eyes PERRL, conjunctivae normal, anicteric sclerae ENMT external ear and nose normal, oropharynx normal Neck trachea midline, no thyromegaly Respiratory normal respiratory effort, lungs clear to auscultation Cardiovascular RRR, no murmur, no edema Gastrointestinal (Abdomen) normal bowel sounds, soft, nontender, no hepatosplenomegaly Musculoskeletal no cyanosis or clubbing, extremities motor strength 5/5 Skin no rashes, warm and dry Neurologic patellar DTR's 2+ bilat, sensation intact and PERRL, EOMI, accommodation nl, no face palsy, no dysarthria Psychiatric Orientation: alert and oriented x 3 Lymphatic no cervical or axillary lymphadenopathy Discharge Data Allergies Allergy/AdvReac Type Severity Reaction Status Date / Time No Known Allergies Allergy Unverified 10/15/18 14:02 Consultations 10/15/18 16:00 ED Decision to Admit Stat 10/18/18 12:48 Consult Infectious Diseases Routine 10/21/18 10:10 Consult Pulmonology Routine 10/23/18 12:49 Consult General Surgery Routine 10/24/18 09:33 Consult Obstetrics Routine Ordered Studies 10/15/18 16:10 CT chest wo con Urgent 10/20/18 16:03 US liver Routine 10/22/18 12:30 FL video swallow Routine 10/23/18 12:57 CT abd pelvis oral and IV con Routine Hospital Course (1) Bronchopneumonia: completed 7 days of Zyvox, clinically improved no fever, WBC is 14k but likely due to Prednisone eating better minimal cough per Pulmonary she can be discharged with close follow up (2) Acute respiratory failure with hypoxia: Supplemental oxygen to maintain saturation greater than 90%. two step done morning on 10/25 requiring 2L at rest and on exertion pneumonia is being treated, could be a degree of obesity hypoventilation that is contributing d/c home on oxygen, patient is breathing comfortably and happy to go home follow up with Dr. Nicholson this week, may not need oxygen after a few days (3) Bronchospasm, acute: Prednisone 40mg daily, quick taper with decrease by 10mg every 2 days, complete over next 8 days no wheezing at all on exam no history of asthma (4) Down syndrome: Provide supportive care feels better when her father is around (5) Vomiting: resolved CT abdomen/pelvis was without acute infectious or inflammatory change (6) Follicular cyst of right ovary: Appreciate input from [employer]RA[employer]. Appears to be benign and related with menses. Will need followup to confirm this is the case Dr. Pineda had recommended US after next menses (7) DVT prophylaxis: Lovenox subcu Total Time Total Time Spent Total Time Spent (In Minutes): 31 minutes Total Time Includes: Examination of the Patient, Discharge Planning, Medication Reconciliation, Communication With Other Providers (discussion with case management for oxygen) and Other (updated father at bedside) Discharge Plan Discharge Items Patient Disposition: Home - Self-Care Reason For Visit: BRONCHOPNEUMONIA,ACUTE HYPOXIC RESPIRATORY FAILURE Discharge Diagnosis: Bronchopneumonia Acute hypoxic respiratory failure Condition: Good Discharge Goals: Improve disease control and Improve function Activity: Resume your previous activity Non-emergency contact: Primary Care Provider Call non-emergency contact if: you have any medication questions, your symptoms worsen and you have a fever Follow-up/Referrals: Yvan Nicholson MD [Primary Care Provider] - Diet: Regular Addtl Provider Instructions: Medications: - PREDNISONE: finish a quick taper over the next 8 days start at 40mg daily for two days, then 30mg daily two days, 20mg daily two days and 10mg daily two days and stop Bronchopneumonia responded well to antibiotics, completed 7 days while admitted, no further a ntibiotics needed also treated with Prednisone which should be tapered on discharge Acute hypoxic respiratory failure due to pneumonia lungs slow to recover, two step test yesterday showed that you need 2L at all times this will be temporary should wean off of the oxygen in next 1-2 weeks follow up with Dr. Nicholson in the office to see if you still require oxygen FOLLOW UP - Dr. Nicholson this week, call for appt tomorrow morning, request hospital follow up Prescriptions: New prednisone 10 mg tablet 10 mg PO UD 8 Days Qty: 20 RF: 0 No Action No Known Home Medications RF: 0 Stand-Alone Forms: [facility] Discharge Orders: Discharge Order (Routine); Ordered 10/26/18 Ordered By: Og Castillo Admission Data Admit Date/Time: 10/15/18 16:23 Attending Provider: Og Castillo Admit Provider: Manuel Lester Primary Care Provider: Yvan Nicholson Other Providers: Manuel Lester ; Kaur Mahoney ; Harpal Bowser ; Rio Cunningham ; Stephy Pineda Service: Telemetry Other Interventions: Discharge Summary Assessment (RN) Last Done: 10/26/18 12:53 DC Date/Time DO NOT enter until pt leaves facility: 10/26/18 13:19
== END 2018-10-26 13:19 | disposition home or self-care (01) | DRG 193 ==
LOC: ED 13:30 → 2N 16:23 → SUATTDRO 16:23 → 2N 18:48